=== PATIENT | male | born 1965 | race American Indian/Alaskan Native ===

== ENCOUNTER 2019-11-13 19:23 | Observation (INO) | payer MEDICARE ==
--- NOTE | 2019-11-13 19:54 | Cat Scan Report ---
CT HEAD WITHOUT CONTRAST INDICATION / CLINICAL INFORMATION: neuro deficits <6hrs or sx present upon awakening. TECHNIQUE: All CT scans at this location are performed using CT dose reduction for ALARA by means of automated e xposure control. COMPARISON: Head CT 09/21/2019 and 02/17/2018 and MRI brain 09/22/2019. FINDINGS: HEMORRHAGE: No evidence of intracranial hemorrhage or extra-axial fluid collection. EXTRA-AXIAL SPACES: Dilatation of cortical sulci is noted over the convexity of the right cerebral he misphere. There is increased size of the subarachnoid space in this same distribution. VENTRICULAR SYSTEM: Asymmetry of the lateral ventricles is noted right larger than left. CEREBRAL PARENCHYMA: The right cerebral hemisphere is smaller than that on the left. This finding tog ether with enlargement of the ventricles and subarachnoid space along the convexity of the right cere bral hemisphere suggest the possibility of Dyke Joi Ulisses syndrome. MIDLINE SHIFT OR HERNIATION: There is no mass effect. CEREBELLUM / BRAINSTEM: There is relative atrophy of the right cerebral peduncle. Brain stem has an o therwise unremarkable appearance. Cerebellum has a normal appearance. MIDLINE STRUCTURES:No abnormalities of the pituitary gland or pineal region are identified. INTRACRANIAL VESSELS:No abnormalities are identified on this noncontrast head CT. ORBITS: visualized portions of the orbits have an unremarkable appearance. SOFT TISSUES of HEAD: No significant abnormality. CALVARIUM: Evaluation of bone windows reveals no abnormalities. PARANASAL SINUSES / MASTOID AIR CELLS: Paranasal sinuses are free from inflammatory mucosal disease. Mastoid air cells are normally pneumatized. ADDITIONAL FINDINGS: None. IMPRESSION: 1. 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 Findings are stable in comparison to previous studies dating back through 02/17/2018. 2. No acute intracranial abnormality. CODE STROKE: Time of Communication (CORPORATE ACCOUNTANT/CDT): 1845 central standard time. Licensed Practitioner Receiving Report: Dr Jackson of the [facility] emergency de partment. This communication required a hold time of about 3 minutes Signer Name: Festus Lucas MD Signed: 11/13/2019 7:49 PM Workstation Name: [id number]
[2019-11-13 20:06] LABS: Basophils % (Auto) 0.6 % (0.0-1.8); Eosinophils # (Auto) 0.1 K/mm3 (0.0-0.4); Eosinophils % (Auto) 1.6 % (0.0-4.3); Hematocrit 35.7 % (35.5-45.6); Hemoglobin 12.4 gm/dl (11.8-15.2); Lymphocytes # (Auto) 1.7 K/mm3 (1.2-5.4); Lymphocytes % (Auto) 41.9 % (13.4-35.0); Mean Corpuscular HGB Conc 35 % (32-34); Mean Corpuscular Volume 92 fl (84-94); Monocytes # (Auto) 0.5 K/mm3 (0.0-0.8); Monocytes % (Auto) 13.6 % (0.0-7.3); Platelet Count 179 K/mm3 (140-440); Red Blood Count 3.89 M/mm3 (3.65-5.03); Red Cell Distribution Width 13.6 % (13.2-15.2)
--- NOTE | 2019-11-13 20:16 | Cat Scan Report ---
CTA neck without and with intravenous contrast material CLINICAL HISTORY: stroke symptoms less than 24hr TECHNIQUE: Following acquisition of a timing bolus 0.625 mm thick contiguous axial scans were obtained from aort ic arch to the skull base during rapid bolus intravenous contrast infusion. In addition to evaluation of axial source images multiplanar reconstructions were produced and reviewed for this report. 3 juana ne MIP reconstructions were produced and reviewed. Contrast dose report: Omnipaque 350: 100 ml, administered intravenously All CT examinations performed at this facility utilize modulated dose reduction, iterative reconstruc tion or weight-based dosing, as appropriate, to obtain a radiation dose which is as low as can reason ably be achieved. FINDINGS: Thoracic aorta:No abnormalities are identified along the course of the thoracic aorta..The origins of the great vessels have an unremarkable appearance. Brachiocephalic artery, left common carotid arter y origin and left subclavian artery all have an unremarkable appearance. Right carotid artery:No abnormalities are seen along the course of the RCCA, at the right carotid bif urcation or along the cervical portions of the DASHA. Left carotid artery: Soft plaque is observed at the left carotid bifurcation. There is no associated stenosis. Left common carotid artery and cervical portions of the left internal carotid artery have a normal appearance. Posterior circulation:The vertebral arteries have an unremarkable appearance. Balanced vertebral juancarlos rosalio are demonstrated. Both vertebral arteries contribute to the basilar artery origin. The basilar a rtery has an unremarkable appearance. The degree of stenosis, if any, is determined utilizing NASCET like criteria. In this case there is no indication of hemodynamically significant stenosis at the carotid bifurcations or elsewhere. Evaluation of the nonvascular soft tissue structures reveal no abnormality. There is no indication of cervical lymphadenopathy. No abnormalities are seen along the course of the airway. Visualized porti ons of the parotid glands and the submandibular salivary glands have a normal appearance. Thyroid gla nd has a normal appearance. Evaluation of the lung apices reveals no evidence of lung nodule or infil trate. Evaluation of the cervical spine revealed no significant abnormalities. IMPRESSION: 1. No indication of hemodynamically significant stenosis at the carotid bifurcations or elsewhere. Signer Name: Festus Lucas MD Signed: 11/13/2019 8:12 PM Workstation Name: [id number]
[2019-11-13 20:18] LABS: INR 1.04 (0.87-1.13)
[2019-11-13 20:19] LABS: BUN/Creatinine Ratio 19; Blood Urea Nitrogen 15 mg/dL (9-20); Calcium 8.1 mg/dL (8.4-10.2); Hemolysis Index 22
[2019-11-13 20:20] LABS: Partial Thromboplastin Time 30.4 Sec. (24.2-36.6)
--- NOTE | 2019-11-13 20:22 | Cat Scan Report ---
CTA head with intravenous contrast CLINICAL HISTORY: stroke symptoms less than 24hr TECHNIQUE: 0.625 mm thick contiguous axial scans were obtained from the skull base to the skull vertex during r apid bolus administration of intravenous contrast material. Multiplanar reconstructions were produced in the coronal and sagittal planes. In addition 3 plane MIP instructions were produced and reviewed for this report. The axial source images and reconstructed images were reviewed for this report. CONTRAST DOSE REPORT: Omnipaque 350: 100 ml administered intravenously. All CT scans at this location are performed using CT dose reduction for ALARA by means of automated e xposure control. FINDINGS: Internal carotid arteries:Luzmaria, cavernous, opthalmic, clinoid and supraclinoid segments of the ICAs have an unremarkable appearance. Middle cerebral arteries: There is mild asymmetry of the M1 segments of the left middle cerebral juancarlos rosalio, left larger than right. In addition there is a slightly diminutive caliber to the insular and o percular branches of the right middle cerebral artery compared to those on the left. There is no greg cation of large vessel occlusion or intracranial stenosis. Slight decrease in caliber of the middle c erebral artery and its branches on the right is likely related to hemiatrophy of the right cerebral h emisphere. Anterior cerebral arteries: Normal and symmetrical A1 segments anterior cerebral arteries are demonst rated. A small anterior communicating artery is observed. No abnormalities are seen along the course of the A2 segments or their pericallosal branches. Vertebral arteries: Balanced vertebral arteries both contribute to the basilar artery origin. Basilar artery: Basilar artery has a normal appearance. Posterior cerebral arteries:No abnormalities. Dural sinuses: Dural venous sinuses are well demonstrated on this exam. There is no evidence of dural sinus thrombosis. IMPRESSION: 1. No evidence of intracranial stenosis, large vessel occlusion or aneurysm. Signer Name: Festus Lucas MD Signed: 11/13/2019 8:18 PM Workstation Name: [id number]
--- NOTE | 2019-11-13 20:42 | Emergency Department Report ---
HPI - General Chief Complaint: Neuro Symptoms/Deficit PUI?: No Time Seen by Provider: 11/13/19 19:29 - HPI HPI: [facility] Date of Service: 11/13/2019 19:23:59 Comments/Sign-Out: left visual field deficit, left sided weakness, and blurred vision since 5:00 am on wakeup, no alteplase. Differential includes conversion vs. 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 ASPECTS 10. CT head negative. Metrics: Last Known Well: 11/14/2019 05:00:00 [facility] Notification Time: 11/13/2019 19:23:36 Arrival Time: 11/13/2019 19:34:15 Stamp Time: 11/13/2019 19:23:59 Time First Login Attempt: 11/13/2019 19:29:49 Video Start Time: 11/13/2019 19:29:49 Symptoms: weakness x 2 hours and slurred speech, left arm and leg numbness and weakness NIHSS Start Assessment Time: 11/13/2019 19:31:30 Patient is not a candidate for Alteplase/Activase. Patient was not deemed candidate for Alteplase/Activase thrombolytics because of Last Well Known Above 4.5 Hours. Video End Time: 11/13/2019 19:59:00 CT head showed no acute hemorrhage or acute core infarct. Clinical Presentation is Suggestive of Large Vessel Occlusive Disease, Recommendations are as Follows Reviewed, No Indication of Large Vessel Occlusive Thrombus, Patient is not an DAMIAN Candidate. ED Physician notified of diagnostic impression and management plan on 11/13/2019 19:35:35 History of Present Illness: Patient is a 53 year old Male. Patient was brought by EMS for symptoms of weakness x 2 hours and slurred speech, left arm and leg numbness and weakness The patient has had weakness, x 2 hours and slurred speech. Left arm and leg weakness, and slurred speech,. He has diabetes, stent. He has a mild headache. the patient has blurry vision in both eyes he states since 5 am, based on this he was not normal. Patient states his left arm hurts all the way down. He states he has had blurry vision since the morning, and the last time he has felt absolutely normal was this morning. On examination we note a visual field deficit on the left side also. Note: This story is different than EMS history, I confirmed with the patient x 3 about time of visual symptom onset. Past Medical History: Hypertension Diabetes Mellitus Coronary Artery Disease Anticoagulant use: No Antiplatelet use: asprin Examination: 1A: Level of Consciousness - Alert; keenly responsive + 0 1B: Ask Month and Age - Both Questions Right + 0 1C: Blink Eyes & Squeeze Hands - Performs Both Tasks + 0 2: Test Horizontal Extraocular Movements - Normal + 0 3: Test Visual Lewis - Complete Hemianopia + 2 4: Test Facial Palsy (Use Grimace if Obtunded) - Normal symmetry + 0 5A: Test Left Arm Motor Drift - No Movement + 4 5B: Test Right Arm Motor Drift - No Drift for 10 Seconds + 0 6A: Test Left Leg Motor Drift - No Movement + 4 6B: Test Right Leg Motor Drift - No Drift for 5 Seconds + 0 7: Test Limb Ataxia (FNF/Heel-Moran) - No Ataxia + 0 8: Test Sensation - Normal; No sensory loss + 0 9: Test Language/Aphasia - Normal; No aphasia + 0 10: Test Dysarthria - Normal + 0 11: Test Extinction/Inattention - No abnormality + 0 NIHSS Score: 10 Patient/Family was informed the Neurology Consult would happen via TeleHealth consult by way of interactive audio and video telecommunications and consented to receiving care in this manner. Due to the immediate potential for life-threatening deterioration due to underlying acute neurologic illness, I spent 35 minutes providing critical care. This time includes time for face to face visit via telemedicine, review of medical records, imaging studies and discussion of findings with providers, the patient and/or family. Dr Stanley Liang [facility] Case [id number] ED Past Medical Hx - Past Medical History Previous Medical History?: Yes Hx Hypertension: Yes Additional medical history: cerebral palsy, quadrople bypass - Surgical History Past Surgical History?: Yes Additional Surgical History: bypass - Social History Smoking Status: Current Every Day Smoker Substance Use Type: Alcohol - Medications Home Medications: Home Medications Medication Instructions Recorded Confirmed Last Taken Type Abacavir/Dolutegravir/Lamivudi 1 each PO QDAY 11/13/19 11/13/19 Unknown History [Triumeq 600-50-300 mg Tablet] Aspirin [Adult Aspirin] 81 mg PO QDAY 11/13/19 11/13/19 Unknown History Metoprolol [Lopressor TAB] 50 mg PO QDAY 11/13/19 11/13/19 Unknown History diphenhydrAMINE [Benadryl CAP] 50 mg PO QHS 11/13/19 11/13/19 Unknown History ED Review of Systems ROS: Stated complaint: STROKE Other details as noted in HPI Constitutional: see HPI Eyes: as per HPI ENT: as per HPI Respiratory: see HPI Physical Exam - Physical Exam Vital Signs: Vital Signs 11/13/19 20:09 Temperature 98.5 F Pulse Rate 72 Respiratory 14 Rate Blood Pressure 135/80 Blood Pressure 135/80 [Left] O2 Sat by Pulse 100 Oximetry ED Course Vital Signs 11/13/19 20:09 Temperature 98.5 F Pulse Rate 72 Respiratory 14 Rate Blood Pressure 135/80 Blood Pressure 135/80 [Left] O2 Sat by Pulse 100 Oximetry ED Medical Decision Making - Lab Data Result diagrams: 11/13/19 19:56 11/13/19 19:56 Critical care attestation.: If time is entered above; I have spent that time in minutes in the direct care of this critically ill patient, excluding procedure time. ED Disposition Clinical Impression: CVA (cerebral vascular accident), CAD (coronary artery disease) Disposition: OP ADMIT IP TO THIS HOSP Is pt being admited?: Yes Condition: Stable Time of Disposition: 23:31
[2019-11-13] MEDS ORDERED: ASPIRIN 325 MG TAB PO ONE (20:45)
--- NOTE | 2019-11-13 21:26 | Emergency Department Report ---
ED General Adult HPI - General Chief complaint: Neuro Symptoms/Deficit Stated complaint: STROKE PUI?: Yes Time Seen by Provider: 11/13/19 19:29 Source: patient, EMS Mode of arrival: Stretcher Limitations: No Limitations - History of Present Illness Initial comments: Patient is a 53-year-old F [place] male who has a past medical history of hypertension diabetes and CABG 8 months ago who is presenting with left-sided weakness. On arrival paramedics stated that the symptoms been present for 2 hours however the patient states that he started having symptoms earlier this morning. Patient is having slurred speech and left-sided weakness. Patient is unable to walk secondary to weakness. Patient denies any cough cold congestion fevers or chills. - Related Data Allergies Allergy/AdvReac Type Severity Reaction Status Date / Time metoclopramide [From Reglan] Allergy Unknown Verified 11/13/19 19:25 promethazine [From Phenergan] Allergy Unknown Verified 11/13/19 19:25 ED Review of Systems ROS: Stated complaint: STROKE Other details as noted in HPI Comment: All other systems reviewed and negative Constitutional: see HPI Eyes: as per HPI ENT: as per HPI Respiratory: see HPI ED Past Medical Hx - Past Medical History Previous Medical History?: Yes Hx Hypertension: Yes Additional medical history: cerebral palsy, quadrople bypass - Surgical History Past Surgical History?: Yes Additional Surgical History: bypass - Social History Smoking Status: Current Every Day Smoker Substance Use Type: Alcohol ED Physical Exam - General Limitations: No Limitations, Physical Limitation General appearance: alert, in no apparent distress - Head Head exam: Present: atraumatic, normocephalic - Eye Eye exam: Present: normal appearance, PERRL, EOMI - ENT ENT exam: Present: mucous membranes moist - Neck Neck exam: Present: normal inspection - Respiratory Respiratory exam: Present: normal lung sounds bilaterally. Absent: respiratory distress, wheezes, rales, rhonchi - Cardiovascular Cardiovascular Exam: Present: regular rate, normal rhythm, normal heart sounds. Absent: systolic murmur, diastolic murmur, rubs, gallop - GI/Abdominal GI/Abdominal exam: Present: soft, normal bowel sounds. Absent: distended, tenderness, guarding, rebound - Rectal Rectal exam: Present: deferred - Extremities Exam Extremities exam: Present: normal inspection - Back Exam Back exam: Present: normal inspection - Neurological Exam Neurological exam: Present: alert, oriented X3, CN II-XII intact, motor sensory deficit - Psychiatric Psychiatric exam: Present: normal affect, normal mood - Skin Skin exam: Present: warm, dry, intact, normal color. Absent: rash - Other Other exam information: Examination: 1A: Level of Consciousness - Alert; keenly responsive + 0 1B: Ask Month and Age - Both Questions Right + 0 1C: Blink Eyes & Squeeze Hands - Performs Both Tasks + 0 2: Test Horizontal Extraocular Movements - Normal + 0 3: Test Visual Lewis - Complete Hemianopia + 2 4: Test Facial Palsy (Use Grimace if Obtunded) - Normal symmetry + 0 5A: Test Left Arm Motor Drift - No Movement + 4 5B: Test Right Arm Motor Drift - No Drift for 10 Seconds + 0 6A: Test Left Leg Motor Drift - No Movement + 4 6B: Test Right Leg Motor Drift - No Drift for 5 Seconds + 0 7: Test Limb Ataxia (FNF/Heel-Moran) - No Ataxia + 0 8: Test Sensation - Normal; No sensory loss + 0 9: Test Language/Aphasia - Normal; No aphasia + 0 10: Test Dysarthria - Normal + 0 11: Test Extinction/Inattention - No abnormality + 0 NIHSS Score: 10 ED Course Vital Signs 11/13/19 11/13/19 20:05 20:09 Temperature 98.5 F Pulse Rate 72 Respiratory 14 14 Rate Blood Pressure 135/80 Blood Pressure 135/80 [Left] O2 Sat by Pulse 100 100 Oximetry ED Medical Decision Making - Lab Data Result diagrams: 11/13/19 19:56 11/13/19 19:56 Lab Results 11/13/19 11/13/19 11/13/19 Range/Units 19:56 19:56 19:56 WBC 3.9 L (4.5-11.0) K/mm3 RBC 3.89 (3.65-5.03) M/mm3 Hgb 12.4 (11.8-15.2) gm/dl Hct 35.7 (35.5-45.6) % MCV 92 (84-94) fl MCH 32 (28-32) pg MCHC 35 H (32-34) % RDW 13.6 (13.2-15.2) % Plt Count 179 (140-440) K/mm3 Lymph % (Auto) 41.9 H (13.4-35.0) % [place] % (Auto) 13.6 H (0.0-7.3) % Eos % (Auto) 1.6 (0.0-4.3) % Baso % (Auto) 0.6 (0.0-1.8) % Lymph # 1.7 (1.2-5.4) K/mm3 [place] # 0.5 (0.0-0.8) K/mm3 Eos # 0.1 (0.0-0.4) K/mm3 Baso # 0.0 (0.0-0.1) K/mm3 Seg Neutrophils % 42.3 (40.0-70.0) % Seg Neutrophils # 1.7 L (1.8-7.7) K/mm3 PT 13.8 (12.2-14.9) Sec. INR 1.04 (0.87-1.13) APTT 30.4 (24.2-36.6) Sec. Thrombin Time (15.1-19.6) Sec. Sodium 136 L (137-145) mmol/L Potassium 3.6 (3.6-5.0) mmol/L Chloride 105.8 (98-107) mmol/L Carbon Dioxide 20 L (22-30) mmol/L Anion Gap 14 mmol/L BUN 15 (9-20) mg/dL Creatinine 0.8 (0.8-1.3) mg/dL Estimated GFR > 60 ml/min BUN/Creatinine Ratio 19 % Glucose 93 (75-100) mg/dL Calcium 8.1 L (8.4-10.2) mg/dL Troponin T < 0.010 (0.00-0.029) ng/mL 11/13/19 Range/Units 19:56 WBC (4.5-11.0) K/mm3 RBC (3.65-5.03) M/mm3 Hgb (11.8-15.2) gm/dl Hct (35.5-45.6) % MCV (84-94) fl MCH (28-32) pg MCHC (32-34) % RDW (13.2-15.2) % Plt Count (140-440) K/mm3 Lymph % (Auto) (13.4-35.0) % [place] % (Auto) (0.0-7.3) % Eos % (Auto) (0.0-4.3) % Baso % (Auto) (0.0-1.8) % Lymph # (1.2-5.4) K/mm3 [place] # (0.0-0.8) K/mm3 Eos # (0.0-0.4) K/mm3 Baso # (0.0-0.1) K/mm3 Seg Neutrophils % (40.0-70.0) % Seg Neutrophils # (1.8-7.7) K/mm3 PT (12.2-14.9) Sec. INR (0.87-1.13) APTT (24.2-36.6) Sec. Thrombin Time 18.1 (15.1-19.6) Sec. Sodium (137-145) mmol/L Potassium (3.6-5.0) mmol/L Chloride (98-107) mmol/L Carbon Dioxide (22-30) mmol/L Anion Gap mmol/L BUN (9-20) mg/dL Creatinine (0.8-1.3) mg/dL Estimated GFR ml/min BUN/Creatinine Ratio % Glucose (75-100) mg/dL Calcium (8.4-10.2) mg/dL Troponin T (0.00-0.029) ng/mL - EKG Data -: EKG Interpreted by Ca EKG shows normal: sinus rhythm, axis, intervals, QRS complexes, ST-T waves Rate: normal - EKG Data Interpretation: normal EKG - Radiology Data Ordering Physician: ANGELY CARBALLO MD Date of Service: 11/13/19 Procedure(s): CT head/brain wo [facility] Accession Number(s): [id number] cc: ANGELY CARBALLO MD CT HEAD WITHOUT CONTRAST INDICATION / CLINICAL INFORMATION: neuro deficits <6hrs or sx present upon awakening. TECHNIQUE: All CT scans at this location are performed using CT dose reduction for ALARA by means of automated exposure control. COMPARISON: Head CT 09/21/2019 and 02/17/2018 and MRI brain 09/22/2019. FINDINGS: HEMORRHAGE: No evidence of intracranial hemorrhage or extra-axial fluid collection. EXTRA-AXIAL SPACES: Dilatation of cortical sulci is noted over the convexity of the right cerebral hemisphere. There is increased size of the subarachnoid space in this same distribution. VENTRICULAR SYSTEM: Asymmetry of the lateral ventricles is noted right larger than left. CEREBRAL PARENCHYMA: The right cerebral hemisphere is smaller than that on the left. This finding together with enlargement of the ventricles and subarachnoid space along the convexity of the right cerebral hemisphere suggest the possibility of Dyke Joi Ulisses syndrome. MIDLINE SHIFT OR HERNIATION: There is no mass effect. CEREBELLUM / BRAINSTEM: There is relative atrophy of the right cerebral peduncle. Brain stem has an otherwise unremarkable appearance. Cerebellum has a normal appearance. MIDLINE STRUCTURES:No abnormalities of the pituitary gland or pineal region are identified. INTRACRANIAL VESSELS:No abnormalities are identified on this noncontrast head CT. ORBITS: visualized portions of the orbits have an unremarkable appearance. SOFT TISSUES of HEAD: No significant abnormality. CALVARIUM: Evaluation of bone windows reveals no abnormalities. PARANASAL SINUSES / MASTOID AIR CELLS: Paranasal sinuses are free from inflammatory mucosal disease. Mastoid air cells are normally pneumatized. ADDITIONAL FINDINGS: None. IMPRESSION: 1. 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 Findings are stable in comparison to previous studies dating back through 02/17/2018. 2. No acute intracranial abnormality. CODE STROKE: Time of Communication (PRODUCT MARKETING MANAGER/CDT): 1845 central standard time. Licensed Practitioner Receiving Report: Dr Jackson of the [facility] emergency department. This communication required a hold time of about 3 minutes Signer Name: Festus Lucas MD Signed: 11/13/2019 7:49 PM Workstation Name: [id number] CTA neck without and with intravenous contrast material CLINICAL HISTORY: stroke symptoms less than 24hr TECHNIQUE: Following acquisition of a timing bolus 0.625 mm thick contiguous axial scans were obtained from aortic arch to the skull base during rapid bolus intravenous contrast infusion. In addition to evaluation of axial source images multiplanar reconstructions were produced and reviewed for this report. 3 plane MIP reconstructions were produced and reviewed. Contrast dose report: Omnipaque 350: 100 ml, administered intravenously All CT examinations performed at this facility utilize modulated dose reduction, iterative reconstruction or weight-based dosing, as appropriate, to obtain a radiation dose which is as low as can reasonably be achieved. FINDINGS: Thoracic aorta:No abnormalities are identified along the course of the thoracic aorta..The origins of the great vessels have an unremarkable appearance. Brachiocephalic artery, left common carotid artery origin and left subclavian artery all have an unremarkable appearance. Right carotid artery:No abnormalities are seen along the course of the RCCA, at the right carotid bifurcation or along the cervical portions of the DASHA. Left carotid artery: Soft plaque is observed at the left carotid bifurcation. There is no associated stenosis. Left common carotid artery and cervical portions of the left internal carotid artery have a normal appearance. Posterior circulation:The vertebral arteries have an unremarkable appearance. Balanced vertebral arteries are demonstrated. Both vertebral arteries contribute to the basilar artery origin. The basilar artery has an unremarkable appearance. The degree of stenosis, if any, is determined utilizing NASCET like criteria. In this case there is no indication of hemodynamically significant stenosis at the carotid bifurcations or elsewhere. Evaluation of the nonvascular soft tissue structures reveal no abnormality. There is no indication of cervical lymphadenopathy. No abnormalities are seen along the course of the airway. Visualized portions of the parotid glands and the submandibular salivary glands have a normal appearance. Thyroid gland has a normal appearance. Evaluation of the lung apices reveals no evidence of lung nodule or infiltrate. Evaluation of the cervical spine revealed no significant abnormalities. IMPRESSION: 1. No indication of hemodynamically significant stenosis at the carotid bifurcations or elsewhere. Signer Name: Festus Lucas MD Signed: 11/13/2019 8:12 PM Workstation Name: [id number] CTA head with intravenous contrast CLINICAL HISTORY: stroke symptoms less than 24hr TECHNIQUE: 0.625 mm thick contiguous axial scans were obtained from the skull base to the skull vertex during rapid bolus administration of intravenous contrast material. Multiplanar reconstructions were produced in the coronal and sagittal planes. In addition 3 plane MIP instructions were produced and reviewed for this report. The axial source images and reconstructed images were reviewed for this report. CONTRAST DOSE REPORT: Omnipaque 350: 100 ml administered intravenously. All CT scans at this location are performed using CT dose reduction for ALARA by means of automated exposure control. FINDINGS: Internal carotid arteries:Luz[place]ia, cavernous, opthalmic, clinoid and supraclinoid segments of the ICAs have an unremarkable appearance. Middle cerebral arteries: There is mild asymmetry of the M1 segments of the left middle cerebral arteries, left larger than right. In addition there is a slightly diminutive caliber to the insular and opercular branches of the right middle cerebral artery compared to those on the left. There is no indication of large vessel occlusion or intracranial stenosis. Slight decrease in caliber of the middle cerebral artery and its branches on the right is likely related to hemiatrophy of the right cerebral hemisphere. Anterior cerebral arteries: Normal and symmetrical A1 segments anterior cerebral arteries are demonstrated. A small anterior communicating artery is observed. No abnormalities are seen along the course of the A2 segments or their pericallosal branches. Vertebral arteries: Balanced vertebral arteries both contribute to the basilar artery origin. Basilar artery: Basilar artery has a normal appearance. Posterior cerebral arteries:No abnormalities. Dural sinuses: Dural venous sinuses are well demonstrated on this exam. There is no evidence of dural sinus thrombosis. IMPRESSION: 1. No evidence of intracranial stenosis, large vessel occlusion or aneurysm. Signer Name: Festus Lucas MD Signed: 11/13/2019 8:18 PM Workstation Name: [id number] - Medical Decision Making No large vessel occlusion was found on CT however the patient is showing significant strokelike symptoms. Patient given aspirin. Patient outside window for TPA. Patient will be admitted to the hospitalist service for further management. Critical care attestation.: If time is entered above; I have spent that time in minutes in the direct care of this critically ill patient, excluding procedure time. ED Disposition Clinical Impression: CVA (cerebral vascular accident) Disposition: OP ADMIT IP TO THIS HOSP Is pt being admited?: Yes Does the pt Need Aspirin: No Condition: Stable Referrals: PRIMARY CARE, [Primary Care Provider] - 3-5 Days Time of Disposition: 21:26
[2019-11-13] MEDS ORDERED: DEXTROSE 50% IN WATER (25GM) 50 ML SYRINGE IV PRN (21:45)
[2019-11-13] MEDS ORDERED: ACETAMINOPHEN 325 MG TAB PO PRN ×2 (21:45)
[2019-11-13] MEDS ORDERED: METOCLOPRAMIDE 10 MG TAB PO PRN (21:45)
[2019-11-13] MEDS ORDERED: PROMETHAZINE 25 MG RECT SUPP PR PRN (21:45)
[2019-11-13] MEDS ORDERED: MAGNESIUM HYDROXIDE (MOM) ORAL LIQD UDC PO PRN (21:45)
[2019-11-13] MEDS ORDERED: ONDANSETRON 4 MG/2 ML INJ IV PRN (21:45)
[2019-11-13] MEDS ORDERED: INSULIN LISPRO 100 UNIT/ML VIAL 3 mL SUB-Q SCH (22:00)
--- NOTE | 2019-11-13 22:07 | History and Physical Report ---
<DIPTIANALY O - Last Filed: 11/14/19 01:56> History of Present Illness Date of examination: 11/13/19 Date of admission: 11/13/19 21:26 Chief complaint: Left Sided Weakness Slurred Speech History of present illness: Patient is a 53-year-old male with known history of hypertension, HIV positive with CD4 count of 19 about 3 weeks ago, coronary artery disease with quadruple bypass about 8 months ago presenting to the emergency room today complaining of left-sided weakness and slurred speech. Symptoms were said to have started earlier this morning. He denies any chest pain or shortness of breath, no fever or chills, no headache or dizziness, no nausea vomiting, denies any difficulty swallowing, denies any fall. He has been unable to ambulate because of the left-sided weakness. Work-up in the emergency room did not reveal any acute abnormality on the CT scan of the head, lab tests were also unremarkable. Patient was evaluated by the tele neurologist. Recommendation is to have a full work-up for possible CVA. Past History Past Medical History: CAD, hypertension, other (Cerebral palsy, HIV+ve with CD4 count of 19 (3weeks ago)-follows up at the infectious Disease clinic in [place].) Past Surgical History: CABG Social history: smoking (Current daily smoker), alcohol abuse Family history: no significant family history Medications and Allergies Allergies Allergy/AdvReac Type Severity Reaction Status Date / Time metoclopramide [From Reglan] Allergy Unknown Verified 11/13/19 19:25 promethazine [From Phenergan] Allergy Unknown Verified 11/13/19 19:25 Home Medications Medication Instructions Recorded Confirmed Last Taken Type Abacavir/Dolutegravir/Lamivudi 1 each PO QDAY 11/13/19 11/14/19 Unknown History [Triumeq 600-50-300 mg Tablet] Aspirin [Adult Aspirin] 81 mg PO QDAY 11/13/19 11/14/19 Unknown History Metoprolol [Lopressor TAB] 50 mg PO QDAY 11/13/19 11/14/19 Unknown History diphenhydrAMINE [Benadryl CAP] 50 mg PO QHS 11/13/19 11/14/19 Unknown History Active Meds: Active Medications Acetaminophen (Tylenol) 650 mg PO Q4H PRN PRN Reason: Pain, Mild (1-3) Sodium Chloride (Sodium Chloride Flush Syringe 10 Ml) 10 ml INJ PRN PRN PRN Reason: LINE FLUSH Review of Systems Constitutional: no fever, no chills Ears, nose, mouth and throat: no nasal congestion, no sore throat Cardiovascular: no chest pain, no palpitations Respiratory: no cough, no shortness of breath Gastrointestinal: no abdominal pain, no nausea, no vomiting, no diarrhea Genitourinary Male: no dysuria, no hematuria, no nocturia Musculoskeletal: no neck pain, no low back pain Integumentary: no rash, no pruritis Neurological: no headaches, no confusion Psychiatric: no anxiety, no depression Exam - Constitutional Vitals: Temp Pulse Resp BP Pulse Ox 98.5 F 76 18 122/64 98 11/13/19 20:09 11/13/19 21:16 11/13/19 21:16 11/13/19 21:16 11/13/19 21:16 General appearance: Present: no acute distress, well-nourished - EENT Eyes: Present: PERRL, EOM intact. Absent: scleral icterus ENT: hearing intact, clear oral mucosa, dentition normal - Neck Neck: Present: supple, normal ROM - Respiratory Respiratory effort: normal Respiratory: bilateral: CTA - Cardiovascular Rhythm: regular Heart Sounds: Present: S1 & S2. Absent: gallop, systolic murmur, diastolic murmur, rub - Extremities Extremities: no ischemia, pulses intact, pulses symmetrical, No edema Peripheral Pulses: within normal limits - Abdominal General gastrointestinal: Present: soft, non-tender, non-distended, normal bowel sounds. Absent: mass - Integumentary Integumentary: Present: clear, warm, dry. Absent: rash - Musculoskeletal Musculoskeletal: left sided weakness - Psychiatric Psychiatric: appropriate mood/affect, intact judgment & insight, memory intact, cooperative - Neurologic Neurologic: CNII-XII intact, focal deficits (Left Sided Weakness, Facial droop.) HEART Score - HEART Score Troponin: Troponin T < 0.010 ng/mL (0.00-0.029) 11/13/19 19:56 Results - Labs CBC & Chem 7: 11/13/19 19:56 11/13/19 19:56 Labs: Abnormal lab results 11/13/19 11/13/19 Range/Units 19:56 19:56 WBC 3.9 L (4.5-11.0) K/mm3 MCHC 35 H (32-34) % Lymph % (Auto) 41.9 H (13.4-35.0) % [place] % (Auto) 13.6 H (0.0-7.3) % Seg Neutrophils # 1.7 L (1.8-7.7) K/mm3 Sodium 136 L (137-145) mmol/L Carbon Dioxide 20 L (22-30) mmol/L Calcium 8.1 L (8.4-10.2) mg/dL Assessment and Plan - Patient Problems (1) CVA (cerebral vascular accident) Current Visit: Yes Status: Acute Plan to address problem: Patient admitted and placed on daily aspirin. We will schedule patient for carotid Doppler, echocardiogram and MRI of the brain. We will place a consult to neurology for evaluation and recommendation. (2) Hypertension Current Visit: Yes Status: Acute Plan to address problem: Blood pressure appears stable. We will resume routine home medications once reconciled We will monitor vital signs closely. (3) CAD (coronary artery disease) Current Visit: Yes Status: Acute (4) HIV positive Current Visit: Yes Status: Acute Plan to address problem: Patient CD4 count was 19 about 3 weeks ago. Patient follows up with infectious disease clinic in [place]. (5) DVT prophylaxis Current Visit: Yes Status: Acute Plan to address problem: Patient is placed on subcutaneous Lovenox. (6) Full code status Current Visit: Yes Status: Acute <ALTA NEGRON - Last Filed: 11/14/19 12:38> History of Present Illness Date of admission: 11/13/19 21:26 Medications and Allergies Active Meds: Active Medications Acetaminophen (Tylenol) 650 mg PO Q4H PRN PRN Reason: Pain, Mild (1-3) Aspirin (Aspirin) 325 mg PO QDAY [facility] Last Admin: 11/14/19 10:41 Dose: 325 mg Documented by: Atorvastatin Calcium (Lipitor) 40 mg PO QHS [facility] Last Admin: 11/13/19 22:44 Dose: 40 mg Documented by: Bisacodyl (Dulcolax) 10 mg RI QDAY PRN PRN Reason: Constipation Dextrose (D50w (25gm) Syringe) 0 ml IV Q30MIN PRN; Protocol PRN Reason: Hypoglycemia Enoxaparin Sodium (Enoxaparin) 40 mg SUB-Q QDAY@2200 [facility] Magnesium Hydroxide (Milk Of Magnesia) 30 ml PO Q4H PRN PRN Reason: Constipation Ondansetron HCl (Zofran) 4 mg IV Q8H PRN PRN Reason: Nausea And Vomiting Sodium Chloride (Sodium Chloride Flush Syringe 10 Ml) 10 ml IV PRN PRN PRN Reason: LINE FLUSH Sodium Chloride (Sodium Chloride Flush Syringe 10 Ml) 10 ml IV BID [facility] Last Admin: 11/14/19 10:41 Dose: 10 ml Documented by: Exam - Constitutional Vitals: Temp Pulse Resp BP Pulse Ox 97.8 F 83 18 120/82 97 11/14/19 07:50 11/14/19 07:50 11/14/19 07:50 11/14/19 07:50 11/14/19 07:50 HEART Score - HEART Score Troponin: Troponin T < 0.010 ng/mL (0.00-0.029) 11/13/19 19:56 Results - Labs CBC & Chem 7: 11/14/19 07:19 11/14/19 07:19 Labs: Abnormal lab results 11/13/19 11/13/19 11/14/19 Range/Units 19:56 19:56 07:19 WBC 3.9 L 3.6 L (4.5-11.0) K/mm3 MCHC 35 H 35 H (32-34) % Lymph % (Auto) 41.9 H 41.0 H (13.4-35.0) % [place] % (Auto) 13.6 H 11.6 H (0.0-7.3) % Seg Neutrophils # 1.7 L 1.6 L (1.8-7.7) K/mm3 Sodium 136 L (137-145) mmol/L Potassium (3.6-5.0) mmol/L Carbon Dioxide 20 L (22-30) mmol/L Glucose (75-100) mg/dL Calcium 8.1 L (8.4-10.2) mg/dL HDL Cholesterol (40-59) mg/dL 11/14/19 Range/Units 07:19 WBC (4.5-11.0) K/mm3 MCHC (32-34) % Lymph % (Auto) (13.4-35.0) % [place] % (Auto) (0.0-7.3) % Seg Neutrophils # (1.8-7.7) K/mm3 Sodium (137-145) mmol/L Potassium 3.4 L (3.6-5.0) mmol/L Carbon Dioxide (22-30) mmol/L Glucose 114 H (75-100) mg/dL Calcium (8.4-10.2) mg/dL HDL Cholesterol 32 L (40-59) mg/dL Assessment and Plan - Patient Problems (1) Hypokalemia Current Visit: Yes Status: Acute
[2019-11-14 07:44] LABS: Basophils % (Auto) 0.8 % (0.0-1.8); Eosinophils # (Auto) 0.1 K/mm3 (0.0-0.4); Eosinophils % (Auto) 2.1 % (0.0-4.3); Hematocrit 37.4 % (35.5-45.6); Hemoglobin 13.1 gm/dl (11.8-15.2); Lymphocytes # (Auto) 1.5 K/mm3 (1.2-5.4); Mean Corpuscular HGB Conc 35 % (32-34); Mean Corpuscular Volume 92 fl (84-94); Monocytes # (Auto) 0.4 K/mm3 (0.0-0.8); Monocytes % (Auto) 11.6 % (0.0-7.3); Platelet Count 181 K/mm3 (140-440); Red Blood Count 4.08 M/mm3 (3.65-5.03); Red Cell Distribution Width 13.4 % (13.2-15.2)
[2019-11-14 07:55] LABS: INR 0.99 (0.87-1.13)
[2019-11-14 08:03] LABS: BUN/Creatinine Ratio 18; Blood Urea Nitrogen 14 mg/dL (9-20); Calcium 8.4 mg/dL (8.4-10.2); HDL Cholesterol 32 mg/dL (40-59); Hemolysis Index 3; LDL Cholesterol,Direct 73 mg/dL (50-130)
[2019-11-14] MEDS ORDERED: ASPIRIN 325 MG TAB PO SCH (10:00)
--- NOTE | 2019-11-14 10:18 | Magnetic Resonance Report ---
MRI BRAIN WITHOUT CONTRAST INDICATION / CLINICAL INFORMATION: Cerebrovascular accident. Left-sided weakness. TECHNIQUE: Multiplanar, multisequence MR images of the brain were obtained. COMPARISON: Head CT 11/13/2019 and MRI brain 07/02/2019, 10/17/2018 and 02/28/2018. FINDINGS: BRAIN / INTRACRANIAL CONTENTS: Diffusion weighted scans are negative. There is no indication of acute or subacute ischemic injury. Hemiatrophy of the right cerebral hemisphere is noted with dilatation of the right lateral ventricle, enlargement of the right sylvian fissure and interest location of the frontal, temporal and parietal lobes. These findings are stable in comparison to previous study and are on a developmental basis. There is no mass effect. No evidence of intracranial hemorrhage or extra-axial fluid collection is se en. Evaluation of the brainstem is remarkable for atrophy of the right cerebral peduncle and right side o f the gemma likely related to the atrophy of the right cerebral hemisphere. Microvascular ischemic adeel nges are suspected in the left side of the gemma. Brainstem has an otherwise unremarkable appearance. No cerebellar abnormalities are identified. There is abnormal signal intensity in the sphenoid bone on the left just anterior and medial to the l eft anterior clinoid process. This may reflect opacification of a pneumatized superior lateral recess of the left sphenoid sinus. Possibility of encephalocele is considered less likely as there is no co rresponding bone defect in this region on CTA head dated 11/13/2019. This finding is stable comparison to previous studies dating back through 02/28/2018. MIDLINE STRUCTURES:No abnormalities are seen to involve the pituitary gland. Pineal region has an unr emarkable appearance. CRANIOCERVICAL JUNCTION: No abnormalities are identified at the craniocervical junction. VASCULAR FLOW-VOIDS: Normal flow-voids are present within the major intracranial vessels. ORBITS: The orbits have an unremarkable appearance. SINUSES / MASTOIDS: There is no indication of inflammatory disease in the paranasal sinuses or mastoi d air cells. ADDITIONAL FINDINGS: None. IMPRESSION: 1. 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 This would be expect ed, this finding is stable when compared to previous studies dating back through 02/28/2018. 2. No indication of acute or subacute infarction. 3. No interval change in comparison to previous studies. Signer Name: Festus Lucas MD Signed: 11/14/2019 10:14 AM Workstation Name: [id number]
[2019-11-14] MEDS ORDERED: POTASSIUM CHLORIDE ER 20 MEQ TAB PO ONE (12:20)
--- NOTE | 2019-11-14 12:28 | Progress Note ---
Assessment and Plan - Patient Problems (1) CVA (cerebral vascular accident) Current Visit: Yes Status: Acute Plan to address problem: Continue current medical regimen Patient admitted and placed on daily aspirin. carotid Doppler, echocardiogram and MRI of the brain. Neurologist consult (2) Hypertension Current Visit: Yes Status: Acute Plan to address problem: Blood pressure appears stable. Monitor blood pressure Resume home med (3) CAD (coronary artery disease) Current Visit: Yes Status: Acute Resume home statin (4) HIV positive Current Visit: Yes Status: Acute Plan to address problem: Patient CD4 count was 19 about 3 weeks ago. Patient follows up with infectious disease clinic in [place]. Patient is on triumeq at home-not in hospital formulary Will resume pts home antiviral when available (5) DVT prophylaxis Current Visit: Yes Status: Acute Plan to address problem: Patient is placed on subcutaneous Lovenox. (6) Full code status Current Visit: Yes Status: Acute - Patient Problems (1) Hypokalemia Current Visit: Yes Status: Acute Plan to address problem: replete potassium Am lab, bmp and mag level Subjective Date of service: 11/14/19 Principal diagnosis: CVA with left sided weakness Interval history: Patient seen at bedside in the his room. Patient alert and oriented. Noted slurred speech but clear. Left side weakness-pt said condition is new. Reviewed lab, mar, and v/s. MRI today will follow up with result Objective - Constitutional Vitals: Vital Signs - 12hr 11/14/19 11/14/19 11/14/19 03:09 04:54 07:50 Temperature 98.0 F 97.8 F Pulse Rate 63 83 Respiratory 16 18 Rate Blood Pressure 116/74 120/82 O2 Sat by Pulse 98 94 97 Oximetry General appearance: Present: no acute distress, well-nourished - EENT Eyes: PERRL, EOM intact ENT: hearing intact, clear oral mucosa Ears: bilateral: normal - Neck Neck: supple, normal ROM - Respiratory Respiratory effort: normal Respiratory: bilateral: CTA, diminished (report tobacco use about 4 to 6 sticks daily) - Breasts Breasts: normal - Cardiovascular Rhythm: regular Heart Sounds: Present: S1 & S2. Absent: gallop, rub Extremities: pulses intact, No edema, normal color, Full ROM - Gastrointestinal General gastrointestinal: Present: soft, non-tender, non-distended, normal bowel sounds - Genitourinary Male genitourinary: normal - Integumentary Integumentary: clear, warm, dry - Musculoskeletal Musculoskeletal: left sided weakness (Patient came with CVA) - Neurologic Neurologic: moves all extremities - Psychiatric Psychiatric: memory intact, appropriate mood/affect, intact judgment & insight - Allied health notes Allied health notes reviewed: nursing - Labs CBC & Chem 7: 11/14/19 07:19 11/14/19 07:19 Labs: Abnormal lab results 11/13/19 11/13/19 11/14/19 Range/Units 19:56 19:56 07:19 WBC 3.9 L 3.6 L (4.5-11.0) K/mm3 MCHC 35 H 35 H (32-34) % Lymph % (Auto) 41.9 H 41.0 H (13.4-35.0) % [place] % (Auto) 13.6 H 11.6 H (0.0-7.3) % Seg Neutrophils # 1.7 L 1.6 L (1.8-7.7) K/mm3 Sodium 136 L (137-145) mmol/L Potassium (3.6-5.0) mmol/L Carbon Dioxide 20 L (22-30) mmol/L Glucose (75-100) mg/dL Calcium 8.1 L (8.4-10.2) mg/dL HDL Cholesterol (40-59) mg/dL 11/14/19 Range/Units 07:19 WBC (4.5-11.0) K/mm3 MCHC (32-34) % Lymph % (Auto) (13.4-35.0) % [place] % (Auto) (0.0-7.3) % Seg Neutrophils # (1.8-7.7) K/mm3 Sodium (137-145) mmol/L Potassium 3.4 L (3.6-5.0) mmol/L Carbon Dioxide (22-30) mmol/L Glucose 114 H (75-100) mg/dL Calcium (8.4-10.2) mg/dL HDL Cholesterol 32 L (40-59) mg/dL HEART Score - HEART Score Troponin: Troponin T < 0.010 ng/mL (0.00-0.029) 11/13/19 19:56
[2019-11-14] MEDS: ASPIRIN EC 81 MG TAB PO SCH (13:00)
[2019-11-14] MEDS: METOPROLOL TARTRATE 50 MG TAB PO SCH (13:40)
[2019-11-14] MEDS: oxyCODONE /ACETAMINOPHEN 5-325MG TAB PO PRN (15:50)
[2019-11-14] MEDS: ENOXAPARIN 40 MG/0.4 ML INJ SUB-Q SCH (21:52)
[2019-11-15 06:07] LABS: BUN/Creatinine Ratio 13; Blood Urea Nitrogen 12 mg/dL (9-20); Calcium 8.7 mg/dL (8.4-10.2); Hemolysis Index 4
[2019-11-15] MEDS: METOPROLOL TARTRATE 50 MG TAB PO SCH (09:43)
[2019-11-15] MEDS: ASPIRIN EC 81 MG TAB PO SCH (09:43)
[2019-11-15] MEDS ORDERED: MAGNESIUM SULFATE 4 GM/100 ML BAG IV ONE (10:00)
--- NOTE | 2019-11-15 12:56 | Progress Note ---
Assessment and Plan - Patient Problems (1) CVA (cerebral vascular accident) Current Visit: Yes Status: Acute Plan to address problem: Continue current medical regimen ASA carotid Doppler, echocardiogram and MRI of the brain. Neurologist consult CT of the head and CT of neck-showed no acute finding MRI of the brain-no acute finding. Reviewed SW note and PT note and recommendation-inpatient rehab recommended Will d/c pt when placement is confirmed (2) Hypertension-stable Current Visit: Yes Status: Acute Plan to address problem: Blood pressure appears stable. Monitor blood pressure Resume home med (3) CAD (coronary artery disease) Current Visit: Yes Status: Acute Resume home statin (4) HIV positive Current Visit: Yes Status: Acute Plan to address problem: Patient CD4 count was 19 about 3 weeks ago. Patient follows up with infectious disease clinic in [place]. Patient is on triumeq at home-not in hospital formulary Will resume pts home antiviral when available (5) DVT prophylaxis Current Visit: Yes Status: Acute Plan to address problem: Patient is placed on subcutaneous Lovenox. (6) Full code status Current Visit: Yes Status: Acute - Patient Problems (1) Hypokalemia Current Visit: Yes Status: Acute Plan to address problem: resolved Continue to monitor electrolytes (2) Hypomagnesemia Current Visit: Yes Status: Acute Plan to address problem: Replete magnesium Am lab-monitor mag level Subjective Date of service: 11/15/19 Principal diagnosis: CVA with left sided weakness Interval history: Patient seen at bedside in the his room. Patient alert and oriented. Noted left left side weakness on assessment. Reviewed lab, mar, and v/s. CT of the head -showed no acute process CT of the neck negative MRI of the brain-showed no acute finding Discussed radiology finding with patient-patient voiced understanding. Objective - Constitutional Vitals: Vital Signs - 12hr 11/15/19 11/15/19 11/15/19 05:36 08:00 09:35 Temperature 98.2 F Pulse Rate 76 77 Respiratory 16 Rate Blood Pressure 124/83 O2 Sat by Pulse 96 96 Oximetry 11/15/19 09:43 Temperature Pulse Rate 84 Respiratory Rate Blood Pressure 110/70 O2 Sat by Pulse Oximetry General appearance: Present: no acute distress - EENT Eyes: PERRL, EOM intact ENT: hearing intact, clear oral mucosa Ears: bilateral: normal - Neck Neck: supple, normal ROM - Respiratory Respiratory effort: normal Respiratory: bilateral: diminished - Breasts Breasts: normal - Cardiovascular Heart rate: 80 Rhythm: regular Heart Sounds: Present: S1 & S2. Absent: gallop, rub Extremities: abnormal (pt reports left sided weakness) - Genitourinary Male genitourinary: normal - Integumentary Integumentary: clear, warm, dry - Musculoskeletal Musculoskeletal: left sided weakness - Neurologic Neurologic: moves all extremities - Psychiatric Psychiatric: memory intact, appropriate mood/affect, intact judgment & insight - Allied health notes Allied health notes reviewed: nursing, PT - Labs CBC & Chem 7: 11/14/19 07:19 11/15/19 04:50 Labs: Abnormal lab results 11/15/19 Range/Units 04:50 Chloride 107.2 H (98-107) mmol/L Carbon Dioxide 21 L (22-30) mmol/L Magnesium 1.60 L (1.7-2.3) mg/dL HEART Score - HEART Score Troponin: Troponin T < 0.010 ng/mL (0.00-0.029) 11/13/19 19:56
[2019-11-15] MEDS: oxyCODONE /ACETAMINOPHEN 5-325MG TAB PO PRN (21:46)
[2019-11-15] MEDS: ENOXAPARIN 40 MG/0.4 ML INJ SUB-Q SCH ×2 (21:46→21:50)
--- NOTE | 2019-11-16 09:07 | Progress Note ---
Assessment and Plan Assessment and plan: CVA (cerebral vascular accident) Continue current medical regimen ASA Neurologist consulted CT of the head and CT of neck-showed no acute finding MRI of the brain-no acute finding. Reviewed SW note and PT note and recommendation-inpatient rehab recommended Will d/c pt when placement is confirmed Hypertension-stable Blood pressure appears stable. Monitor blood pressure Resume home med CAD (coronary artery disease) Continue statin HIV positive Patient CD4 count was 19 about 3 weeks ago. Patient follows up with infectious disease clinic in [place]. Resume medications Hypokalemia resolved Continue to monitor electrolytes Hypomagnesemia Replete magnesium Am lab-monitor mag level DVT prophylaxis Continue subcutaneous Lovenox. Full code status History Interval history: No new issues overnight. Hospitalist Physical - Constitutional Vitals: Temp Pulse Resp BP Pulse Ox 98.4 F 74 20 143/89 94 11/16/19 08:05 11/16/19 08:05 11/16/19 08:05 11/16/19 08:05 11/16/19 08:55 General appearance: Present: no acute distress - EENT Eyes: Present: PERRL, EOM intact ENT: hearing intact, clear oral mucosa, dentition normal - Neck Neck: Present: supple, normal ROM - Respiratory Respiratory effort: normal Respiratory: bilateral: CTA - Cardiovascular Rhythm: regular Heart Sounds: Present: S1 & S2. Absent: gallop, rub - Extremities Extremities: no ischemia, No edema, Full ROM - Abdominal General gastrointestinal: soft, non-tender, non-distended, normal bowel sounds - Integumentary Integumentary: Present: clear, warm, dry - Neurologic Neurologic: CNII-XII intact, moves all extremities HEART Score - HEART Score Troponin: Troponin T < 0.010 ng/mL (0.00-0.029) 11/13/19 19:56 Results - Labs CBC & Chem 7: 11/14/19 07:19 11/15/19 04:50 Labs: Laboratory Last Values WBC 3.6 K/mm3 (4.5-11.0) L 11/14/19 07:19 RBC 4.08 M/mm3 (3.65-5.03) 11/14/19 07:19 Hgb 13.1 gm/dl (11.8-15.2) 11/14/19 07:19 Hct 37.4 % (35.5-45.6) 11/14/19 07:19 MCV 92 fl (84-94) 11/14/19 07:19 MCH 32 pg (28-32) 11/14/19 07:19 MCHC 35 % (32-34) H 11/14/19 07:19 RDW 13.4 % (13.2-15.2) 11/14/19 07:19 Plt Count 181 K/mm3 (140-440) 11/14/19 07:19 Lymph % (Auto) 41.0 % (13.4-35.0) H 11/14/19 07:19 [place] % (Auto) 11.6 % (0.0-7.3) H 11/14/19 07:19 Eos % (Auto) 2.1 % (0.0-4.3) 11/14/19 07:19 Baso % (Auto) 0.8 % (0.0-1.8) 11/14/19 07:19 Lymph # 1.5 K/mm3 (1.2-5.4) 11/14/19 07:19 [place] # 0.4 K/mm3 (0.0-0.8) 11/14/19 07:19 Eos # 0.1 K/mm3 (0.0-0.4) 11/14/19 07:19 Baso # 0.0 K/mm3 (0.0-0.1) 11/14/19 07:19 Seg Neutrophils % 44.5 % (40.0-70.0) 11/14/19 07:19 Seg Neutrophils # 1.6 K/mm3 (1.8-7.7) L 11/14/19 07:19 PT 13.3 Sec. (12.2-14.9) 11/14/19 07:19 INR 0.99 (0.87-1.13) 11/14/19 07:19 APTT 30.4 Sec. (24.2-36.6) 11/13/19 19:56 Thrombin Time 18.1 Sec. (15.1-19.6) 11/13/19 19:56 Sodium 141 mmol/L (137-145) 11/15/19 04:50 Potassium 4.2 mmol/L (3.6-5.0) D 11/15/19 04:50 Chloride 107.2 mmol/L (98-107) H 11/15/19 04:50 Carbon Dioxide 21 mmol/L (22-30) L 11/15/19 04:50 Anion Gap 17 mmol/L 11/15/19 04:50 BUN 12 mg/dL (9-20) 11/15/19 04:50 Creatinine 0.9 mg/dL (0.8-1.3) 11/15/19 04:50 Estimated GFR > 60 ml/min 11/15/19 04:50 BUN/Creatinine Ratio 13 % 11/15/19 04:50 Glucose 87 mg/dL (75-100) 11/15/19 04:50 Calcium 8.7 mg/dL (8.4-10.2) 11/15/19 04:50 Phosphorus 3.60 mg/dL (2.5-4.5) 11/15/19 04:50 Magnesium 1.80 mg/dL (1.7-2.3) 11/16/19 05:44 Troponin T < 0.010 ng/mL (0.00-0.029) 11/13/19 19:56 Triglycerides 118 mg/dL (2-149) 11/14/19 07:19 Cholesterol 109 mg/dL (50-199) 11/14/19 07:19 LDL Cholesterol Direct 73 mg/dL (50-130) 11/14/19 07:19 HDL Cholesterol 32 mg/dL (40-59) L 11/14/19 07:19 Cholesterol/HDL Ratio 3.40 % 11/14/19 07:19 - Diagnostic Impressions Diagnostic Impressions: Echocardiogram 11/13/19 21:58 Transthoracic Echocardiogram Indication: STROKE BP: 116/78 HR: 74 Conclusions *The left ventricular chamber size is mildly dilated. *Global left ventricular systolic function is mildly decreased. *The estimated ejection fraction is 45-50%. *There is mild mitral regurgitation. *There is mild tricuspid regurgitation. *A patent foramen ovale is not demonstrated by agitated saline contrast. Findings Left Ventricle: The left ventricular chamber size is mildly dilated. Mild concentric left ventricular hypertrophy is observed. Global left ventricular systolic function is mildly decreased. The estimated ejection fraction is 45-50%. Left Atrium: The left atrial chamber size is normal. Right Ventricle: The right ventricular cavity size is normal. The right ventricular global systolic function is normal. Right Atrium: The right atrial cavity size is normal. A patent foramen ovale is not demonstrated by agitated saline contrast. Aortic Valve: The aortic valve is trileaflet. The aortic valve leaflets are mildly thickened. There is trace of aortic regurgitation. There is no evidence of aortic stenosis. Mitral Valve: The mitral valve leaflets are mildly thickened. There is mild mitral regurgitation. There is no evidence of mitral stenosis. Tricuspid Valve: There is mild tricuspid regurgitation. No pulmonary hypertension is noted. Pulmonic Valve: There is mild pulmonic regurgitation. Pericardium: There is no pericardial effusion. Aorta: There is no dilatation of the ascending aorta. There is no dilatation of the aortic root. Venous: The inferior vena cava appears normal in size. Contrast: Intravenous agitated saline contrast was used to assess intracardiac shunting. Measurements Chambers 2D Name Value Normal Range IVSd (2D) 0.84 cm (0.6 - 1.1) LVPWd (2D) 0.75 cm (0.6 - 1.1) IVS:LVPW ratio (2D) 1.12 ratio - LVIDd (2D) 5.07 cm (3.7 - 5.6) LVIDs (2D) 3.77 cm (2 - 3.8) LV FS (Teichholz) (2D) 25.6 % - LV FS (cube) (2D) 25.6 % - EF Teichholz (2D) 50.2 % - Ao root diameter (2D) 3.4 cm (2 - 3.7) LA dimension (AP) 2D 2.9 cm (1.9 - 4) LA:Ao ratio (2D) 0.85 ratio - Volumes/Mass Name Value Normal Range LA ESV SP 4CH (MOD) 27 ml - LA ESV SP 2CH (MOD) 37 ml - LV EDV SP 4CH (MOD) 123 ml - LV ESV SP 4CH (MOD) 45 ml - EF SP 4CH (MOD) 63 % - LV EDV SP 2CH (MOD) 70 ml - LV ESV SP 2CH (MOD) 39 ml - EF SP 2CH (MOD) 44 % - LV EDV BP 96 ml - LV ESV BP 43 ml - BP EF (MOD) 55 % - Diastolic/Systolic Function Name Value Normal Range MV E-wave Vmax 0.61 m/sec - MV deceleration time 250 msec - MV A-wave Vmax 0.53 m/sec - MV E:A ratio 1.1 ratio - LV septal e' Vmax 0.08 m/sec - LV lateral e' Vmax 0.09 m/sec - LV E:e' septal ratio 8 ratio - LV E:e' lateral ratio 7.1 ratio - Aortic Valve Name Value Normal Range AV VTI 22.7 cm - AV mean gradient 3 mmHg - LVOT diameter 2.1 cm - LVOT VTI 14.5 cm - LVOT mean gradient 1 mmHg - SV LVOT 50 ml - WADE (continuity VTI) 2.21 cm2 - Ascending Ao 2.6 cm - Tricuspid Valve Name Value Normal Range TR Vmax 2.09 m/sec - TR peak gradient 17 mmHg - Pulmonic Valve/Qp:Qs Name Value Normal Range PV Vmax 0.88 m/sec - PV VTI 15.7 cm - PV peak gradient 3 mmHg - PV mean gradient 1 mmHg - RI end-diastolic Vmax 0.69 m/sec - RVOT Vmax 0.47 m/sec - RVOT VTI 9.63 cm - RVOT peak gradient 1 mmHg - PV acceleration time 130 msec - Smiley/IV: Voiding Method Urinal IV Catheter Type [Left Upper INT / Saline Lock arm] IV Catheter Type [Left Forearm INT / Saline Lock ] Active Medications - Current Medications Current Medications: Generic Name Dose Route Start Last Admin Trade Name Freq PRN Reason Stop Dose Admin Acetaminophen 650 mg 11/13/19 21:45 Tylenol PO Q4H PRN Pain, Mild (1-3) Aspirin 81 mg 11/14/19 13:00 11/15/19 09:43 Halfprin Ec PO 81 mg QDAY ABDI Administration Atorvastatin Calcium 40 mg 11/13/19 22:00 11/15/19 21:46 Lipitor PO 40 mg QHS ABDI Administration Bisacodyl 10 mg 11/13/19 21:45 Dulcolax RI QDAY PRN Constipation Dextrose 0 ml 11/13/19 21:45 D50w (25gm) Syringe IV Q30MIN PRN Hypoglycemia Protocol Enoxaparin Sodium 40 mg 11/14/19 22:00 11/15/19 21:50 Enoxaparin SUB-Q Not Given QDAY@2200 ABDI Magnesium Hydroxide 30 ml 11/13/19 21:45 Milk Of Magnesia PO Q4H PRN Constipation Metoprolol Tartrate 50 mg 11/14/19 13:00 11/15/19 09:43 Metoprolol PO 50 mg QDAY ABDI Administration Ondansetron HCl 4 mg 11/13/19 21:45 Zofran IV Q8H PRN Nausea And Vomiting Oxycodone/Acetaminophen 1 tab 11/14/19 14:14 11/15/19 21:46 Percocet 5/325 PO 1 tab Q8H PRN Administration Pain, Moderate (4-6) Sodium Chloride 10 ml 11/13/19 21:45 Sodium Chloride Flush Syringe 10 Ml IV PRN PRN LINE FLUSH Sodium Chloride 10 ml 11/13/19 22:00 11/15/19 21:50 Sodium Chloride Flush Syringe 10 Ml IV Not Given BID ABDI Nutrition/Malnutrition Assess - Dietary Evaluation Nutrition/Malnutrition Findings: Nutrition Notes Start: 11/14/19 10:05 Freq: Status: Active Protocol: Document 11/14/19 10:05 LM (Rec: 11/14/19 10:08 LM [id number]) Nutrition Notes Need for Assessment generated from: MD Order Initial or Follow up Brief Note Current Diagnosis Coronary Artery Disease, Diabetes,Hypertension,Stroke Current Diet cardiac/consistent CHO Height 5 ft 11 in Weight 95.164 kg [place] Body Weight (kg) 78.18 BMI 29.2 Weight Status Overweight Subjective/Other Information MS consult for diet education. Pt not in room at time of visit. Nutrition Intervention Follow-Up By: 11/17/19 Additional Comments F/U for diet education
[2019-11-16] MEDS: oxyCODONE /ACETAMINOPHEN 5-325MG TAB PO PRN ×2 (11:44→21:16)
[2019-11-16] MEDS: METOPROLOL TARTRATE 50 MG TAB PO SCH (11:45)
[2019-11-16] MEDS: ASPIRIN EC 81 MG TAB PO SCH (11:46)
[2019-11-16] MEDS: ENOXAPARIN 40 MG/0.4 ML INJ SUB-Q SCH (21:17)
--- NOTE | 2019-11-17 09:40 | Vascular Lab Report ---
BILATERAL CAROTID DOPPLER ULTRASOUND INDICATION : stroke TECHNIQUE: Grayscale and color Doppler imaging performed through the neck. COMPARISON: 10/16/2018 FINDINGS: Right: There is minimal calcific plaque in the carotid bulb. Peak systolic velocity in the CCA is 1 05 cm/s with end-diastolic velocity of 21 cm/s. Peak systolic velocity in the proximal ICA is 97 cm/s with end-diastolic velocity of 17 cm/s. ICA to CCA ratio is less than 2. There is antegrade flow in the ECA and the vertebral artery. Left: There is mild noncalcified smooth plaque in the carotid bulb. Peak systolic velocity in the CCA is 107 cm/s with end-diastolic velocity of 21 cm/s. Peak systolic velocity in the proximal ICA is 78 cm/s with end-diastolic velocity of 26 cm/s. ICA to CCA ratio is less than 2. There is antegrade fl ow in the ECA and the vertebral artery. IMPRESSION: No hemodynamically significant stenosis by NASCET criteria. Doppler velocities indicate l ess than 50% luminal narrowing throughout both carotid systems. No significant change since 10/16/2018 exam. Signer Name: Jose Pino Jr, MD Signed: 11/17/2019 9:36 AM Workstation Name: [id number]
[2019-11-17] MEDS: ASPIRIN EC 81 MG TAB PO SCH (09:58)
[2019-11-17] MEDS: METOPROLOL TARTRATE 50 MG TAB PO SCH (09:59)
[2019-11-17] MEDS: oxyCODONE /ACETAMINOPHEN 5-325MG TAB PO PRN ×2 (10:13→22:24)
--- NOTE | 2019-11-17 11:36 | Progress Note ---
Assessment and Plan Assessment and plan: CVA (cerebral vascular accident) Continue current medical regimen ASA Neurologist consulted CT of the head and CT of neck-showed no acute finding MRI of the brain-no acute finding. Reviewed SW note and PT note and recommendation-inpatient rehab recommended Will d/c pt when placement is confirmed Hypertension-stable Blood pressure appears stable. Monitor blood pressure Resume home med CAD (coronary artery disease) Continue statin HIV positive Patient CD4 count was 19 about 3 weeks ago. Patient follows up with infectious disease clinic in [place]. Resume medications Hypokalemia resolved Continue to monitor electrolytes Hypomagnesemia Replete magnesium Am lab-monitor mag level DVT prophylaxis Continue subcutaneous Lovenox. Full code status PT recommend acute rehab Awaiting acute rehab placement/insurance authorization Continue current management Plan of care reviewed with the patient and his nurse History Interval history: I have seen and examined the patient at the bedside this morning Patient's chart and medications reviewed Patient feels slightly better no new complaints Admitted with neurological symptoms to rule out acute CVA Acute CVA neuro work-up negative so far Patient has no new complaints Vital signs noted Hospitalist Physical - Constitutional Vitals: Temp Pulse Resp BP Pulse Ox 98.0 F 64 20 105/62 95 11/17/19 07:31 11/17/19 04:03 11/17/19 07:31 11/17/19 07:31 11/17/19 08:23 General appearance: Present: no acute distress, well-nourished - EENT Eyes: Present: PERRL, EOM intact - Neck Neck: Present: supple, normal ROM - Respiratory Respiratory effort: normal Respiratory: bilateral: diminished, negative: rales, rhonchi, wheezing - Cardiovascular Rhythm: regular Heart Sounds: Present: S1 & S2 - Extremities Extremities: no ischemia, No edema - Abdominal General gastrointestinal: soft, non-tender, non-distended, normal bowel sounds - Integumentary Integumentary: Present: clear, warm - Psychiatric Psychiatric: appropriate mood/affect, cooperative - Neurologic Neurologic: moves all extremities, other (Generalized weakness) HEART Score - HEART Score Troponin: Troponin T < 0.010 ng/mL (0.00-0.029) 11/13/19 19:56 Results - Labs CBC & Chem 7: 11/14/19 07:19 11/15/19 04:50 Labs: Laboratory Last Values WBC 3.6 K/mm3 (4.5-11.0) L 11/14/19 07:19 RBC 4.08 M/mm3 (3.65-5.03) 11/14/19 07:19 Hgb 13.1 gm/dl (11.8-15.2) 11/14/19 07:19 Hct 37.4 % (35.5-45.6) 11/14/19 07:19 MCV 92 fl (84-94) 11/14/19 07:19 MCH 32 pg (28-32) 11/14/19 07:19 MCHC 35 % (32-34) H 11/14/19 07:19 RDW 13.4 % (13.2-15.2) 11/14/19 07:19 Plt Count 181 K/mm3 (140-440) 11/14/19 07:19 Lymph % (Auto) 41.0 % (13.4-35.0) H 11/14/19 07:19 [place] % (Auto) 11.6 % (0.0-7.3) H 11/14/19 07:19 Eos % (Auto) 2.1 % (0.0-4.3) 11/14/19 07:19 Baso % (Auto) 0.8 % (0.0-1.8) 11/14/19 07:19 Lymph # 1.5 K/mm3 (1.2-5.4) 11/14/19 07:19 [place] # 0.4 K/mm3 (0.0-0.8) 11/14/19 07:19 Eos # 0.1 K/mm3 (0.0-0.4) 11/14/19 07:19 Baso # 0.0 K/mm3 (0.0-0.1) 11/14/19 07:19 Seg Neutrophils % 44.5 % (40.0-70.0) 11/14/19 07:19 Seg Neutrophils # 1.6 K/mm3 (1.8-7.7) L 11/14/19 07:19 PT 13.3 Sec. (12.2-14.9) 11/14/19 07:19 INR 0.99 (0.87-1.13) 11/14/19 07:19 APTT 30.4 Sec. (24.2-36.6) 11/13/19 19:56 Thrombin Time 18.1 Sec. (15.1-19.6) 11/13/19 19:56 Sodium 141 mmol/L (137-145) 11/15/19 04:50 Potassium 4.2 mmol/L (3.6-5.0) D 11/15/19 04:50 Chloride 107.2 mmol/L (98-107) H 11/15/19 04:50 Carbon Dioxide 21 mmol/L (22-30) L 11/15/19 04:50 Anion Gap 17 mmol/L 11/15/19 04:50 BUN 12 mg/dL (9-20) 11/15/19 04:50 Creatinine 0.9 mg/dL (0.8-1.3) 11/15/19 04:50 Estimated GFR > 60 ml/min 11/15/19 04:50 BUN/Creatinine Ratio 13 % 11/15/19 04:50 Glucose 87 mg/dL (75-100) 11/15/19 04:50 POC Glucose 101 (70-105) 11/17/19 07:47 Calcium 8.7 mg/dL (8.4-10.2) 11/15/19 04:50 Phosphorus 3.60 mg/dL (2.5-4.5) 11/15/19 04:50 Magnesium 1.80 mg/dL (1.7-2.3) 11/16/19 05:44 Troponin T < 0.010 ng/mL (0.00-0.029) 11/13/19 19:56 Triglycerides 118 mg/dL (2-149) 11/14/19 07:19 Cholesterol 109 mg/dL (50-199) 11/14/19 07:19 LDL Cholesterol Direct 73 mg/dL (50-130) 11/14/19 07:19 HDL Cholesterol 32 mg/dL (40-59) L 11/14/19 07:19 Cholesterol/HDL Ratio 3.40 % 11/14/19 07:19 - Diagnostic Impressions Diagnostic Impressions: Echocardiogram 11/13/19 21:58 Transthoracic Echocardiogram Indication: STROKE BP: 116/78 HR: 74 Conclusions *The left ventricular chamber size is mildly dilated. *Global left ventricular systolic function is mildly decreased. *The estimated ejection fraction is 45-50%. *There is mild mitral regurgitation. *There is mild tricuspid regurgitation. *A patent foramen ovale is not demonstrated by agitated saline contrast. Findings Left Ventricle: The left ventricular chamber size is mildly dilated. Mild concentric left ventricular hypertrophy is observed. Global left ventricular systolic function is mildly decreased. The estimated ejection fraction is 45-50%. Left Atrium: The left atrial chamber size is normal. Right Ventricle: The right ventricular cavity size is normal. The right ventricular global systolic function is normal. Right Atrium: The right atrial cavity size is normal. A patent foramen ovale is not demonstrated by agitated saline contrast. Aortic Valve: The aortic valve is trileaflet. The aortic valve leaflets are mildly thickened. There is trace of aortic regurgitation. There is no evidence of aortic stenosis. Mitral Valve: The mitral valve leaflets are mildly thickened. There is mild mitral regurgitation. There is no evidence of mitral stenosis. Tricuspid Valve: There is mild tricuspid regurgitation. No pulmonary hypertension is noted. Pulmonic Valve: There is mild pulmonic regurgitation. Pericardium: There is no pericardial effusion. Aorta: There is no dilatation of the ascending aorta. There is no dilatation of the aortic root. Venous: The inferior vena cava appears normal in size. Contrast: Intravenous agitated saline contrast was used to assess intracardiac shunting. Measurements Chambers 2D Name Value Normal Range IVSd (2D) 0.84 cm (0.6 - 1.1) LVPWd (2D) 0.75 cm (0.6 - 1.1) IVS:LVPW ratio (2D) 1.12 ratio - LVIDd (2D) 5.07 cm (3.7 - 5.6) LVIDs (2D) 3.77 cm (2 - 3.8) LV FS (Teichholz) (2D) 25.6 % - LV FS (cube) (2D) 25.6 % - EF Teichholz (2D) 50.2 % - Ao root diameter (2D) 3.4 cm (2 - 3.7) LA dimension (AP) 2D 2.9 cm (1.9 - 4) LA:Ao ratio (2D) 0.85 ratio - Volumes/Mass Name Value Normal Range LA ESV SP 4CH (MOD) 27 ml - LA ESV SP 2CH (MOD) 37 ml - LV EDV SP 4CH (MOD) 123 ml - LV ESV SP 4CH (MOD) 45 ml - EF SP 4CH (MOD) 63 % - LV EDV SP 2CH (MOD) 70 ml - LV ESV SP 2CH (MOD) 39 ml - EF SP 2CH (MOD) 44 % - LV EDV BP 96 ml - LV ESV BP 43 ml - BP EF (MOD) 55 % - Diastolic/Systolic Function Name Value Normal Range MV E-wave Vmax 0.61 m/sec - MV deceleration time 250 msec - MV A-wave Vmax 0.53 m/sec - MV E:A ratio 1.1 ratio - LV septal e' Vmax 0.08 m/sec - LV lateral e' Vmax 0.09 m/sec - LV E:e' septal ratio 8 ratio - LV E:e' lateral ratio 7.1 ratio - Aortic Valve Name Value Normal Range AV VTI 22.7 cm - AV mean gradient 3 mmHg - LVOT diameter 2.1 cm - LVOT VTI 14.5 cm - LVOT mean gradient 1 mmHg - SV LVOT 50 ml - WADE (continuity VTI) 2.21 cm2 - Ascending Ao 2.6 cm - Tricuspid Valve Name Value Normal Range TR Vmax 2.09 m/sec - TR peak gradient 17 mmHg - Pulmonic Valve/Qp:Qs Name Value Normal Range PV Vmax 0.88 m/sec - PV VTI 15.7 cm - PV peak gradient 3 mmHg - PV mean gradient 1 mmHg - CA end-diastolic Vmax 0.69 m/sec - RVOT Vmax 0.47 m/sec - RVOT VTI 9.63 cm - RVOT peak gradient 1 mmHg - PV acceleration time 130 msec - Smiley/IV: Voiding Method Urinal IV Catheter Type [Left Upper INT / Saline Lock arm] IV Catheter Type [Left Forearm INT / Saline Lock ] Active Medications - Current Medications Current Medications: Generic Name Dose Route Start Last Admin Trade Name Freq PRN Reason Stop Dose Admin Acetaminophen 650 mg 11/13/19 21:45 Tylenol PO Q4H PRN Pain, Mild (1-3) Aspirin 81 mg 11/14/19 13:00 11/17/19 09:58 Halfprin Ec PO 81 mg QDAY ABDI Administration Atorvastatin Calcium 40 mg 11/13/19 22:00 11/16/19 21:15 Lipitor PO 40 mg QHS ABDI Administration Bisacodyl 10 mg 11/13/19 21:45 Dulcolax [place] QDAY PRN Constipation Dextrose 0 ml 11/13/19 21:45 D50w (25gm) Syringe IV Q30MIN PRN Hypoglycemia Protocol Enoxaparin Sodium 40 mg 11/14/19 22:00 11/16/19 21:17 Enoxaparin SUB-Q Not Given QDAY@2200 ABDI Magnesium Hydroxide 30 ml 11/13/19 21:45 Milk Of Magnesia PO Q4H PRN Constipation Metoprolol Tartrate 50 mg 11/14/19 13:00 11/17/19 09:59 Metoprolol PO 50 mg QDAY ABDI Administration Ondansetron HCl 4 mg 11/13/19 21:45 Zofran IV Q8H PRN Nausea And Vomiting Oxycodone/Acetaminophen 1 tab 11/14/19 14:14 11/17/19 10:13 Percocet 5/325 PO 1 tab Q8H PRN Administration Pain, Moderate (4-6) Sodium Chloride 10 ml 11/13/19 21:45 Sodium Chloride Flush Syringe 10 Ml IV PRN PRN LINE FLUSH Sodium Chloride 10 ml 11/13/19 22:00 11/17/19 09:59 Sodium Chloride Flush Syringe 10 Ml IV 10 ml BID ABDI Administration Nutrition/Malnutrition Assess - Dietary Evaluation Nutrition/Malnutrition Findings: Nutrition Notes Start: 11/14/19 10:05 Freq: Status: Active Protocol: Document 11/14/19 10:05 LM (Rec: 11/14/19 10:08 LM [email or web address]) Nutrition Notes Need for Assessment generated from: MD Order Initial or Follow up Brief Note Current Diagnosis Coronary Artery Disease, Diabetes,Hypertension,Stroke Current Diet cardiac/consistent CHO Height 5 ft 11 in Weight 95.164 kg [place] Body Weight (kg) 78.18 BMI 29.2 Weight Status Overweight Subjective/Other Information MS consult for diet education. Pt not in room at time of visit. Nutrition Intervention Follow-Up By: 11/17/19 Additional Comments F/U for diet education
[2019-11-17] MEDS: ENOXAPARIN 40 MG/0.4 ML INJ SUB-Q SCH (22:25)
[2019-11-18] MEDS: METOPROLOL TARTRATE 50 MG TAB PO SCH (10:39)
[2019-11-18] MEDS: ASPIRIN EC 81 MG TAB PO SCH (10:39)
--- NOTE | 2019-11-18 12:03 | Progress Note ---
Assessment and Plan Assessment and plan: --CVA (cerebral vascular accident) Continue aspirin and statin Neuro work-up so far is negative CT of the head and CT of neck-showed no acute finding MRI of the brain-no acute finding. Acute CVA ruled out PT note and recommendation-inpatient rehab recommended Will d/c pt when placement is confirmed --Hypertension-stable Blood pressure appears stable. Monitor blood pressure Resume home med --CAD (coronary artery disease) Continue aspirin and statin --HIV positive Patient CD4 count was 19 about 3 weeks ago. Patient follows up with infectious disease clinic in [place]. Resume medications --Hypokalemia resolved,Continue to monitor electrolytes --Hypomagnesemia Replete magnesium Am lab-monitor mag level --DVT prophylaxis Continue subcutaneous Lovenox. --Full code status PT recommend acute rehab Awaiting acute rehab placement/insurance authorization Versus home with home health Plan of care reviewed with the patient and his nurse Hospitalist Physical - Constitutional Vitals: Temp Pulse Resp BP Pulse Ox 97.3 F L 60 18 111/71 96 11/18/19 08:20 11/18/19 10:00 11/18/19 10:00 11/18/19 08:21 11/18/19 10:00 General appearance: Present: no acute distress, well-nourished - EENT Eyes: Present: PERRL, EOM intact - Neck Neck: Present: supple, normal ROM - Respiratory Respiratory effort: normal Respiratory: bilateral: diminished, negative: rales, rhonchi, wheezing - Cardiovascular Rhythm: regular Heart Sounds: Present: S1 & S2 - Extremities Extremities: no ischemia, No edema Extremity abnormal: other (Generalized weakness) - Abdominal General gastrointestinal: soft, non-tender, non-distended, normal bowel sounds - Integumentary Integumentary: Present: clear, warm - Psychiatric Psychiatric: appropriate mood/affect, cooperative - Neurologic Neurologic: moves all extremities HEART Score - HEART Score Troponin: Troponin T < 0.010 ng/mL (0.00-0.029) 11/13/19 19:56 Results - Labs CBC & Chem 7: 11/14/19 07:19 11/15/19 04:50 Labs: Laboratory Last Values WBC 3.6 K/mm3 (4.5-11.0) L 11/14/19 07:19 RBC 4.08 M/mm3 (3.65-5.03) 11/14/19 07:19 Hgb 13.1 gm/dl (11.8-15.2) 11/14/19 07:19 Hct 37.4 % (35.5-45.6) 11/14/19 07:19 MCV 92 fl (84-94) 11/14/19 07:19 MCH 32 pg (28-32) 11/14/19 07:19 MCHC 35 % (32-34) H 11/14/19 07:19 RDW 13.4 % (13.2-15.2) 11/14/19 07:19 Plt Count 181 K/mm3 (140-440) 11/14/19 07:19 Lymph % (Auto) 41.0 % (13.4-35.0) H 11/14/19 07:19 [place] % (Auto) 11.6 % (0.0-7.3) H 11/14/19 07:19 Eos % (Auto) 2.1 % (0.0-4.3) 11/14/19 07:19 Baso % (Auto) 0.8 % (0.0-1.8) 11/14/19 07:19 Lymph # 1.5 K/mm3 (1.2-5.4) 11/14/19 07:19 [place] # 0.4 K/mm3 (0.0-0.8) 11/14/19 07:19 Eos # 0.1 K/mm3 (0.0-0.4) 11/14/19 07:19 Baso # 0.0 K/mm3 (0.0-0.1) 11/14/19 07:19 Seg Neutrophils % 44.5 % (40.0-70.0) 11/14/19 07:19 Seg Neutrophils # 1.6 K/mm3 (1.8-7.7) L 11/14/19 07:19 PT 13.3 Sec. (12.2-14.9) 11/14/19 07:19 INR 0.99 (0.87-1.13) 11/14/19 07:19 APTT 30.4 Sec. (24.2-36.6) 11/13/19 19:56 Thrombin Time 18.1 Sec. (15.1-19.6) 11/13/19 19:56 Sodium 141 mmol/L (137-145) 11/15/19 04:50 Potassium 4.2 mmol/L (3.6-5.0) D 11/15/19 04:50 Chloride 107.2 mmol/L (98-107) H 11/15/19 04:50 Carbon Dioxide 21 mmol/L (22-30) L 11/15/19 04:50 Anion Gap 17 mmol/L 11/15/19 04:50 BUN 12 mg/dL (9-20) 11/15/19 04:50 Creatinine 0.9 mg/dL (0.8-1.3) 11/15/19 04:50 Estimated GFR > 60 ml/min 11/15/19 04:50 BUN/Creatinine Ratio 13 % 11/15/19 04:50 Glucose 87 mg/dL (75-100) 11/15/19 04:50 POC Glucose 93 (70-105) 11/18/19 01:47 Calcium 8.7 mg/dL (8.4-10.2) 11/15/19 04:50 Phosphorus 3.60 mg/dL (2.5-4.5) 11/15/19 04:50 Magnesium 1.80 mg/dL (1.7-2.3) 11/16/19 05:44 Troponin T < 0.010 ng/mL (0.00-0.029) 11/13/19 19:56 Triglycerides 118 mg/dL (2-149) 11/14/19 07:19 Cholesterol 109 mg/dL (50-199) 11/14/19 07:19 LDL Cholesterol Direct 73 mg/dL (50-130) 11/14/19 07:19 HDL Cholesterol 32 mg/dL (40-59) L 11/14/19 07:19 Cholesterol/HDL Ratio 3.40 % 11/14/19 07:19 - Diagnostic Impressions Diagnostic Impressions: Echocardiogram 11/13/19 21:58 Transthoracic Echocardiogram Indication: STROKE BP: 116/78 HR: 74 Conclusions *The left ventricular chamber size is mildly dilated. *Global left ventricular systolic function is mildly decreased. *The estimated ejection fraction is 45-50%. *There is mild mitral regurgitation. *There is mild tricuspid regurgitation. *A patent foramen ovale is not demonstrated by agitated saline contrast. Findings Left Ventricle: The left ventricular chamber size is mildly dilated. Mild concentric left ventricular hypertrophy is observed. Global left ventricular systolic function is mildly decreased. The estimated ejection fraction is 45-50%. Left Atrium: The left atrial chamber size is normal. Right Ventricle: The right ventricular cavity size is normal. The right ventricular global systolic function is normal. Right Atrium: The right atrial cavity size is normal. A patent foramen ovale is not demonstrated by agitated saline contrast. Aortic Valve: The aortic valve is trileaflet. The aortic valve leaflets are mildly thickened. There is trace of aortic regurgitation. There is no evidence of aortic stenosis. Mitral Valve: The mitral valve leaflets are mildly thickened. There is mild mitral regurgitation. There is no evidence of mitral stenosis. Tricuspid Valve: There is mild tricuspid regurgitation. No pulmonary hypertension is noted. Pulmonic Valve: There is mild pulmonic regurgitation. Pericardium: There is no pericardial effusion. Aorta: There is no dilatation of the ascending aorta. There is no dilatation of the aortic root. Venous: The inferior vena cava appears normal in size. Contrast: Intravenous agitated saline contrast was used to assess intracardiac shunting. Measurements Chambers 2D Name Value Normal Range IVSd (2D) 0.84 cm (0.6 - 1.1) LVPWd (2D) 0.75 cm (0.6 - 1.1) IVS:LVPW ratio (2D) 1.12 ratio - LVIDd (2D) 5.07 cm (3.7 - 5.6) LVIDs (2D) 3.77 cm (2 - 3.8) LV FS (Teichholz) (2D) 25.6 % - LV FS (cube) (2D) 25.6 % - EF Teichholz (2D) 50.2 % - Ao root diameter (2D) 3.4 cm (2 - 3.7) LA dimension (AP) 2D 2.9 cm (1.9 - 4) LA:Ao ratio (2D) 0.85 ratio - Volumes/Mass Name Value Normal Range LA ESV SP 4CH (MOD) 27 ml - LA ESV SP 2CH (MOD) 37 ml - LV EDV SP 4CH (MOD) 123 ml - LV ESV SP 4CH (MOD) 45 ml - EF SP 4CH (MOD) 63 % - LV EDV SP 2CH (MOD) 70 ml - LV ESV SP 2CH (MOD) 39 ml - EF SP 2CH (MOD) 44 % - LV EDV BP 96 ml - LV ESV BP 43 ml - BP EF (MOD) 55 % - Diastolic/Systolic Function Name Value Normal Range MV E-wave Vmax 0.61 m/sec - MV deceleration time 250 msec - MV A-wave Vmax 0.53 m/sec - MV E:A ratio 1.1 ratio - LV septal e' Vmax 0.08 m/sec - LV lateral e' Vmax 0.09 m/sec - LV E:e' septal ratio 8 ratio - LV E:e' lateral ratio 7.1 ratio - Aortic Valve Name Value Normal Range AV VTI 22.7 cm - AV mean gradient 3 mmHg - LVOT diameter 2.1 cm - LVOT VTI 14.5 cm - LVOT mean gradient 1 mmHg - SV LVOT 50 ml - WADE (continuity VTI) 2.21 cm2 - Ascending Ao 2.6 cm - Tricuspid Valve Name Value Normal Range TR Vmax 2.09 m/sec - TR peak gradient 17 mmHg - Pulmonic Valve/Qp:Qs Name Value Normal Range PV Vmax 0.88 m/sec - PV VTI 15.7 cm - PV peak gradient 3 mmHg - PV mean gradient 1 mmHg - IA end-diastolic Vmax 0.69 m/sec - RVOT Vmax 0.47 m/sec - RVOT VTI 9.63 cm - RVOT peak gradient 1 mmHg - PV acceleration time 130 msec - Smiley/IV: Voiding Method Urinal IV Catheter Type [Left Upper INT / Saline Lock arm] IV Catheter Type [Left Forearm INT / Saline Lock ] Active Medications - Current Medications Current Medications: Generic Name Dose Route Start Last Admin Trade Name Freq PRN Reason Stop Dose Admin Acetaminophen 650 mg 11/13/19 21:45 Tylenol PO Q4H PRN Pain, Mild (1-3) Aspirin 81 mg 11/14/19 13:00 11/18/19 10:39 Halfprin Ec PO 81 mg QDAY ABDI Administration Atorvastatin Calcium 40 mg 11/13/19 22:00 11/17/19 22:24 Lipitor PO 40 mg QHS ABDI Administration Bisacodyl 10 mg 11/13/19 21:45 Dulcolax [place] QDAY PRN Constipation Dextrose 0 ml 11/13/19 21:45 D50w (25gm) Syringe IV Q30MIN PRN Hypoglycemia Protocol Enoxaparin Sodium 40 mg 11/14/19 22:00 11/17/19 22:25 Enoxaparin SUB-Q Not Given QDAY@2200 ABDI Magnesium Hydroxide 30 ml 11/13/19 21:45 Milk Of Magnesia PO Q4H PRN Constipation Metoprolol Tartrate 50 mg 11/14/19 13:00 11/18/19 10:39 Metoprolol PO 50 mg QDAY ABDI Administration Ondansetron HCl 4 mg 11/13/19 21:45 Zofran IV Q8H PRN Nausea And Vomiting Oxycodone/Acetaminophen 1 tab 11/14/19 14:14 11/17/19 22:24 Percocet 5/325 PO 1 tab Q8H PRN Administration Pain, Moderate (4-6) Sodium Chloride 10 ml 11/13/19 21:45 Sodium Chloride Flush Syringe 10 Ml IV PRN PRN LINE FLUSH Sodium Chloride 10 ml 11/13/19 22:00 11/18/19 09:55 Sodium Chloride Flush Syringe 10 Ml IV Not Given BID ABDI Nutrition/Malnutrition Assess - Dietary Evaluation Nutrition/Malnutrition Findings: Nutrition Notes Start: 11/14/19 10:05 Freq: Status: Active Protocol: Document 11/17/19 13:26 GUILLERMO (Rec: 11/17/19 14:32 [email or web address] [id number]) Co-Sign 11/17/19 13:26 LM Nutrition Notes Need for Assessment generated from: MD Order Initial or Follow up Assessment Current Diagnosis Coronary Artery Disease, Hypertension,Stroke Other Pertinent Diagnosis HIV Current Diet Cardiac/Consistent CHO Diet + Ensure Labs/Tests POC Glu 106 Pertinent Medications Reviewed Height 5 ft 11 in Weight 97.2 kg [place] Body Weight (kg) 78.18 BMI 29.9 Intake Prior to Admission Excellent Weight Status Overweight Subjective/Other Information MD consult for ONS and F/U for diet ed. RN reports pt eating 100% of meals and supplements . Pt states difficulty chewing . Pt given diet ed for stroke nutrition therapy. Percent of energy/protein needs met: 100%/100% Burn Absent Trauma Absent Difficulty In Chewing Food Allergy No Current % PO Good (75-100%) Minimum of two criteria No Reduced Anode Worker Strength Measurably Reduced (severe) #1 Nutrition Diagnosis Food and nutrition-related knowledge deficit Etiology Limited prior diet education for stroke As Evidenced by Signs and Symptoms pt accepted handout Is patient on ventilator? No Is Patient Ambulatory and/or Out of Bed Yes REE-([place]-St. Jeor-ambulatory/OOB) [ 2397.369 [id number]] Kcal/Kg value to use for calculation 22 Approximate Energy Requirements Using 2138 kcal/Kg Calculation Used for Recommendations Kcal/kg Additional Notes Protein needs are 70-88 (0.8-1 g/kg AdjBW) Fluid needs are 1 ml/kcal Nutrition Intervention Change Diet Order: Continue Add Supplement/Snack (indicate name/kcal Glucerna daily /protein ) Provides kCal: 220 Provides Protein (gm) 10 Teaching Recipient Patient Learning Readiness Good Teaching Methods Discussion,Handout Response to Teaching Verbalize understanding Education Handouts Provided Stroke Nutrition Therapy Barriers to Learning No Barriers RD phone number provided Yes Patient aware of follow up options Yes Goal #1 Meet 75% of energy and protein needs Anticipated Discharge Needs: Cardiac/Consistent CHO Revisit per MD consult or patient Sign Off request:
[2019-11-18] MEDS: oxyCODONE /ACETAMINOPHEN 5-325MG TAB PO PRN ×2 (12:23→21:48)
[2019-11-18] MEDS: ENOXAPARIN 40 MG/0.4 ML INJ SUB-Q SCH (21:02)
[2019-11-19 09:33] VITALS: BP 103/65
[2019-11-19] MEDS: ASPIRIN EC 81 MG TAB PO SCH (09:36)
[2019-11-19] MEDS: METOPROLOL TARTRATE 50 MG TAB PO SCH (09:36)
[2019-11-19] MEDS: oxyCODONE /ACETAMINOPHEN 5-325MG TAB PO PRN (09:40)
--- NOTE | 2019-11-19 10:40 | Progress Note ---
Assessment and Plan Assessment and plan: --CVA (cerebral vascular accident) Continue aspirin and statin Neuro work-up so far is negative CT of the head and CT of neck-showed no acute finding MRI of the brain-no acute finding. Acute CVA ruled out PT note and recommendation-inpatient rehab recommended Will d/c pt when placement is confirmed --Hypertension-stable Blood pressure appears stable. Monitor blood pressure Resume home med --CAD (coronary artery disease) Continue aspirin and statin --HIV positive Patient CD4 count was 19 about 3 weeks ago. Patient follows up with infectious disease clinic in [place]. Resume medications --Hypokalemia resolved,Continue to monitor electrolytes --Hypomagnesemia Replete magnesium Am lab-monitor mag level --DVT prophylaxis Continue subcutaneous Lovenox. --Full code status PT recommend acute rehab Awaiting acute rehab placement/insurance authorization Versus home with home health Plan of care reviewed with the patient and his nurse Hospitalist Physical - Constitutional Vitals: Temp Pulse Resp BP Pulse Ox 97.4 F L 74 18 103/65 98 11/19/19 09:06 11/19/19 09:36 11/19/19 09:06 11/19/19 09:06 11/19/19 09:24 General appearance: Present: no acute distress, well-nourished HEART Score - HEART Score Troponin: Troponin T < 0.010 ng/mL (0.00-0.029) 11/13/19 19:56 Results - Labs CBC & Chem 7: 11/14/19 07:19 11/15/19 04:50 Labs: Laboratory Last Values WBC 3.6 K/mm3 (4.5-11.0) L 11/14/19 07:19 RBC 4.08 M/mm3 (3.65-5.03) 11/14/19 07:19 Hgb 13.1 gm/dl (11.8-15.2) 11/14/19 07:19 Hct 37.4 % (35.5-45.6) 11/14/19 07:19 MCV 92 fl (84-94) 11/14/19 07:19 MCH 32 pg (28-32) 11/14/19 07:19 MCHC 35 % (32-34) H 11/14/19 07:19 RDW 13.4 % (13.2-15.2) 11/14/19 07:19 Plt Count 181 K/mm3 (140-440) 11/14/19 07:19 Lymph % (Auto) 41.0 % (13.4-35.0) H 11/14/19 07:19 [place] % (Auto) 11.6 % (0.0-7.3) H 11/14/19 07:19 Eos % (Auto) 2.1 % (0.0-4.3) 11/14/19 07:19 Baso % (Auto) 0.8 % (0.0-1.8) 11/14/19 07:19 Lymph # 1.5 K/mm3 (1.2-5.4) 11/14/19 07:19 [place] # 0.4 K/mm3 (0.0-0.8) 11/14/19 07:19 Eos # 0.1 K/mm3 (0.0-0.4) 11/14/19 07:19 Baso # 0.0 K/mm3 (0.0-0.1) 11/14/19 07:19 Seg Neutrophils % 44.5 % (40.0-70.0) 11/14/19 07:19 Seg Neutrophils # 1.6 K/mm3 (1.8-7.7) L 11/14/19 07:19 PT 13.3 Sec. (12.2-14.9) 11/14/19 07:19 INR 0.99 (0.87-1.13) 11/14/19 07:19 APTT 30.4 Sec. (24.2-36.6) 11/13/19 19:56 Thrombin Time 18.1 Sec. (15.1-19.6) 11/13/19 19:56 Sodium 141 mmol/L (137-145) 11/15/19 04:50 Potassium 4.2 mmol/L (3.6-5.0) D 11/15/19 04:50 Chloride 107.2 mmol/L (98-107) H 11/15/19 04:50 Carbon Dioxide 21 mmol/L (22-30) L 11/15/19 04:50 Anion Gap 17 mmol/L 11/15/19 04:50 BUN 12 mg/dL (9-20) 11/15/19 04:50 Creatinine 0.9 mg/dL (0.8-1.3) 11/15/19 04:50 Estimated GFR > 60 ml/min 11/15/19 04:50 BUN/Creatinine Ratio 13 % 11/15/19 04:50 Glucose 87 mg/dL (75-100) 11/15/19 04:50 POC Glucose 93 (70-105) 11/18/19 01:47 Calcium 8.7 mg/dL (8.4-10.2) 11/15/19 04:50 Phosphorus 3.60 mg/dL (2.5-4.5) 11/15/19 04:50 Magnesium 1.80 mg/dL (1.7-2.3) 11/16/19 05:44 Troponin T < 0.010 ng/mL (0.00-0.029) 11/13/19 19:56 Triglycerides 118 mg/dL (2-149) 11/14/19 07:19 Cholesterol 109 mg/dL (50-199) 11/14/19 07:19 LDL Cholesterol Direct 73 mg/dL (50-130) 11/14/19 07:19 HDL Cholesterol 32 mg/dL (40-59) L 11/14/19 07:19 Cholesterol/HDL Ratio 3.40 % 11/14/19 07:19 - Diagnostic Impressions Diagnostic Impressions: Echocardiogram 11/13/19 21:58 Transthoracic Echocardiogram Indication: STROKE BP: 116/78 HR: 74 Conclusions *The left ventricular chamber size is mildly dilated. *Global left ventricular systolic function is mildly decreased. *The estimated ejection fraction is 45-50%. *There is mild mitral regurgitation. *There is mild tricuspid regurgitation. *A patent foramen ovale is not demonstrated by agitated saline contrast. Findings Left Ventricle: The left ventricular chamber size is mildly dilated. Mild concentric left ventricular hypertrophy is observed. Global left ventricular systolic function is mildly decreased. The estimated ejection fraction is 45-50%. Left Atrium: The left atrial chamber size is normal. Right Ventricle: The right ventricular cavity size is normal. The right ventricular global systolic function is normal. Right Atrium: The right atrial cavity size is normal. A patent foramen ovale is not demonstrated by agitated saline contrast. Aortic Valve: The aortic valve is trileaflet. The aortic valve leaflets are mildly thickened. There is trace of aortic regurgitation. There is no evidence of aortic stenosis. Mitral Valve: The mitral valve leaflets are mildly thickened. There is mild mitral regurgitation. There is no evidence of mitral stenosis. Tricuspid Valve: There is mild tricuspid regurgitation. No pulmonary hypertension is noted. Pulmonic Valve: There is mild pulmonic regurgitation. Pericardium: There is no pericardial effusion. Aorta: There is no dilatation of the ascending aorta. There is no dilatation of the aortic root. Venous: The inferior vena cava appears normal in size. Contrast: Intravenous agitated saline contrast was used to assess intracardiac shunting. Measurements Chambers 2D Name Value Normal Range IVSd (2D) 0.84 cm (0.6 - 1.1) LVPWd (2D) 0.75 cm (0.6 - 1.1) IVS:LVPW ratio (2D) 1.12 ratio - LVIDd (2D) 5.07 cm (3.7 - 5.6) LVIDs (2D) 3.77 cm (2 - 3.8) LV FS (Teichholz) (2D) 25.6 % - LV FS (cube) (2D) 25.6 % - EF Teichholz (2D) 50.2 % - Ao root diameter (2D) 3.4 cm (2 - 3.7) LA dimension (AP) 2D 2.9 cm (1.9 - 4) LA:Ao ratio (2D) 0.85 ratio - Volumes/Mass Name Value Normal Range LA ESV SP 4CH (MOD) 27 ml - LA ESV SP 2CH (MOD) 37 ml - LV EDV SP 4CH (MOD) 123 ml - LV ESV SP 4CH (MOD) 45 ml - EF SP 4CH (MOD) 63 % - LV EDV SP 2CH (MOD) 70 ml - LV ESV SP 2CH (MOD) 39 ml - EF SP 2CH (MOD) 44 % - LV EDV BP 96 ml - LV ESV BP 43 ml - BP EF (MOD) 55 % - Diastolic/Systolic Function Name Value Normal Range MV E-wave Vmax 0.61 m/sec - MV deceleration time 250 msec - MV A-wave Vmax 0.53 m/sec - MV E:A ratio 1.1 ratio - LV septal e' Vmax 0.08 m/sec - LV lateral e' Vmax 0.09 m/sec - LV E:e' septal ratio 8 ratio - LV E:e' lateral ratio 7.1 ratio - Aortic Valve Name Value Normal Range AV VTI 22.7 cm - AV mean gradient 3 mmHg - LVOT diameter 2.1 cm - LVOT VTI 14.5 cm - LVOT mean gradient 1 mmHg - SV LVOT 50 ml - WADE (continuity VTI) 2.21 cm2 - Ascending Ao 2.6 cm - Tricuspid Valve Name Value Normal Range TR Vmax 2.09 m/sec - TR peak gradient 17 mmHg - Pulmonic Valve/Qp:Qs Name Value Normal Range PV Vmax 0.88 m/sec - PV VTI 15.7 cm - PV peak gradient 3 mmHg - PV mean gradient 1 mmHg - NM end-diastolic Vmax 0.69 m/sec - RVOT Vmax 0.47 m/sec - RVOT VTI 9.63 cm - RVOT peak gradient 1 mmHg - PV acceleration time 130 msec - Smiley/IV: Voiding Method Urinal IV Catheter Type [Left Upper INT / Saline Lock arm] IV Catheter Type [Left Forearm INT / Saline Lock ] Active Medications - Current Medications Current Medications: Generic Name Dose Route Start Last Admin Trade Name Freq PRN Reason Stop Dose Admin Acetaminophen 650 mg 11/13/19 21:45 Tylenol PO Q4H PRN Pain, Mild (1-3) Aspirin 81 mg 11/14/19 13:00 11/19/19 09:36 Halfprin Ec PO 81 mg QDAY ABDI Administration Atorvastatin Calcium 40 mg 11/13/19 22:00 11/18/19 21:01 Lipitor PO 40 mg QHS ABDI Administration Bisacodyl 10 mg 11/13/19 21:45 Dulcolax NM QDAY PRN Constipation Dextrose 0 ml 11/13/19 21:45 D50w (25gm) Syringe IV Q30MIN PRN Hypoglycemia Protocol Enoxaparin Sodium 40 mg 11/14/19 22:00 11/18/19 21:02 Enoxaparin SUB-Q Not Given QDAY@2200 ABDI Magnesium Hydroxide 30 ml 11/13/19 21:45 Milk Of Magnesia PO Q4H PRN Constipation Metoprolol Tartrate 50 mg 11/14/19 13:00 11/19/19 09:36 Metoprolol PO 50 mg QDAY ABDI Administration Ondansetron HCl 4 mg 11/13/19 21:45 Zofran IV Q8H PRN Nausea And Vomiting Oxycodone/Acetaminophen 1 tab 11/14/19 14:14 11/19/19 09:40 Percocet 5/325 PO 1 tab Q8H PRN Administration Pain, Moderate (4-6) Sodium Chloride 10 ml 11/13/19 21:45 Sodium Chloride Flush Syringe 10 Ml IV PRN PRN LINE FLUSH Sodium Chloride 10 ml 11/13/19 22:00 11/19/19 09:37 Sodium Chloride Flush Syringe 10 Ml IV Not Given BID ABDI Nutrition/Malnutrition Assess - Dietary Evaluation Nutrition/Malnutrition Findings: Nutrition Notes Start: 11/14/19 10:05 Freq: Status: Active Protocol: Document 11/19/19 10:00 LP (Rec: 11/19/19 10:11 LP [id number]) Nutrition Notes Initial or Follow up Reassessment Current Diagnosis Coronary Artery Disease, Hypertension,Stroke Other Pertinent Diagnosis HIV Current Diet Cardiac/Consistent CHO Diet + Ensure Labs/Tests Reviewed Pertinent Medications Reviewed Height 5 ft 11 in Weight 97.2 kg [place] Body Weight (kg) 78.18 BMI 29.9 Weight Status Overweight Subjective/Other Information Pt called complaining of food this AM. Only eggs on tray. Brought cereal and fruit. Pt states he will need double portions. Burn Absent Trauma Absent Minimum of two criteria No Reduced Income Tax Manager Strength Measurably Reduced (severe) #1 Nutrition Diagnosis Food and nutrition-related knowledge deficit As Evidenced by Signs and Symptoms Pt had no questions Diagnosis Progress(for reassessment Resolved documentation) Is patient on ventilator? No Is Patient Ambulatory and/or Out of Bed Yes REE-([facility]-ambulatory/OOB) [ [id number] [id number]] Calculation Used for Recommendations [facility][1] Additional Notes Protein needs are 78-97g (0.8- 1g/kg) Fluid needs are 1 ml/kcal Nutrition Intervention Change Diet Order: Cardiac Add Supplement/Snack (indicate name/kcal Change to Ensure Enlive BID /protein ) [place] or vanilla Provides kCal: 700 Provides Protein (gm) 40 Goal #1 Meet at least 75% of energy and protein needs Anticipated Discharge Needs: Cardiac diet with ONS as needed Follow-Up By: 11/24/19 Additional Comments Follow for stable intakes and food preferences
--- NOTE | 2019-11-19 11:48 | Discharge Summary ---
Providers - Providers Date of Admission: 11/13/19 21:26 Date of discharge: 11/19/19 Attending physician: FOSTER RIDLEY 11/13/19 Consult to Physician [CONS] Routine Comment: Consulting Provider: ALLEN KRAMER Physician Instructions: Reason For Exam: CVA 11/13/19 21:46 Consult to Dietitian/Nutrition [CONS] Routine Physician Instructions: Reason For Exam: Reason for Consult: Nutrition Recommendations Reason for Consult: Diet education Occupational Therapy Evaluate and Treat [CONS] Routine Comment: Reason For Exam: Neuro deficits Physical Therapy Evaluation and Treat [CONS] Routine Comment: Reason For Exam: Neuro deficits Primary care physician: INDUSTRIAL ECOLOGIST Hospitalization Condition: Stable Hospital course: --CVA (cerebral vascular accident) Continue aspirin and statin Neuro work-up so far is negative CT of the head and CT of neck-showed no acute finding MRI of the brain-no acute finding. Acute CVA ruled out PT note and recommendation-inpatient rehab recommended Will d/c pt when placement is confirmed --Hypertension-stable Blood pressure appears stable. Monitor blood pressure Resume home med --CAD (coronary artery disease) Continue aspirin and statin --HIV positive Patient CD4 count was 19 about 3 weeks ago. Patient follows up with infectious disease clinic in [place]. Resume medications --Hypokalemia resolved,Continue to monitor electrolytes --Hypomagnesemia Replete magnesium Am lab-monitor mag level --DVT prophylaxis Continue subcutaneous Lovenox. --Full code status PT recommend acute rehab Awaiting acute rehab placement/insurance authorization Versus home with home health Disposition: [id number] HOME UNDER HOME [facility] Time spent for discharge: 35 min Core Measure Documentation - Palliative Care Palliative Care/ Comfort Measures: Not Applicable - Core Measures Any of the following diagnoses?: none Exam - Constitutional Vitals: Temp Pulse Resp BP Pulse Ox 97.4 F L 74 18 103/65 98 11/19/19 09:06 11/19/19 09:36 11/19/19 09:06 11/19/19 09:06 11/19/19 09:24 Plan Activity: advance as tolerated, fall precautions Diet: other (cardiac diet) Special Instructions: physical therapy Additional Instructions: Fall precautions. If you have worsening symptoms contact MD or go to emergency room. Smoking cessation advised, nicotine patch as needed Follow up with: PRIMARY CARE, [Primary Care Provider] - 3-5 Days MAXIMO SHERMAN MD [Staff Physician] - 7 Days Prescriptions: Aspirin [Adult Aspirin] 81 mg PO QDAY #30 AtorvaSTATin [Lipitor] 40 mg PO QHS #30 tablet Metoprolol [Lopressor TAB] 50 mg PO QDAY #30
== END 2019-11-19 13:40 | disposition home health service (06) ==
LOC: ED 19:23 → 4A 21:26
PROVIDERS: ADMIT Internal Medicine Geriatric Medicine; ATTEND Internal Medicine
DX: I63.9 Cerebral infarction, unspecified (principal); R47.81 Slurred speech; I10 Essential (primary) hypertension; I25.10 Atherosclerotic heart disease of native coronary artery without angina pectoris; E87.6 Hypokalemia; E83.42 Hypomagnesemia; E11.9 Type 2 diabetes mellitus without complications; F17.200 Nicotine dependence, unspecified, uncomplicated; R29.710 NIHSS score 10; Z21 Asymptomatic human immunodeficiency virus [HIV] infection status; Z95.1 Presence of aortocoronary bypass graft; Z79.82 Long term (current) use of aspirin; Z79.899 Other long term (current) drug therapy
CPT/HCPCS: 36415; 70450; 70496; 70498; 70551; 80048; 80061; 82962; 83735; 84100; 84484; 85025; 85610; 85670; 85730; 93005; 93306; 93880; 94760; 96365; 96366; 96372; 97110; 97112; 97116; 97161; 97165; 97530; 97535; 99291; A9270; G0378; J1650; J3475; Q9967

== ENCOUNTER 2020-01-28 13:32 | Emergency (ER) | payer MEDICARE ==
[2020-01-28 13:40] VITALS: BP 112/81
--- NOTE | 2020-01-28 13:56 | Emergency Department Report ---
Blank Doc - Documentation Documentation: 54-year-old male that presents with SOB and rash. Stated has a positive COVID test a few days ago. This initial assessment/diagnostic orders/clinical plan/treatment(s) is/are subject to change based on patient's health status, clinical progression and re- assessment by fellow clinical providers in the ED. Further treatment and workup at subsequent clinical providers discretion. Patient/guardians urged not to elope from the ED as their condition may be serious if not clinically assessed and managed. Initial orders include: 1- Patient sent to [facility] for further evaluation and treatment 2- CXR
--- NOTE | 2020-01-28 14:36 | XRay Report ---
CHEST 2 VIEWS INDICATION / CLINICAL INFORMATION: cough. COMPARISON: 12/12/2019 FINDINGS: SUPPORT DEVICES: None. HEART / MEDIASTINUM: No significant abnormality. LUNGS / PLEURA: Mild bibasilar airspace disease No pneumothorax. ADDITIONAL FINDINGS: No significant additional findings. IMPRESSION: Mild bibasilar airspace disease is present. Signer Name: Ayush Monzon MD FACR Signed: 01/28/2020 2:32 PM Workstation Name: [id number]
--- NOTE | 2020-01-28 16:26 | Emergency Department Report ---
ED General Adult HPI - General Chief complaint: Skin Rash Stated complaint: RASH Time Seen by Provider: 01/28/20 13:55 Source: patient Mode of arrival: Ambulatory Limitations: No Limitations - History of Present Illness Initial comments: 54-year-old male presenting with chief complaint of rash, gradual onset over the past couple days. He states that it is very itchy. He states that he recently tested positive for COVID-19 and is on around day 7 of symptoms. Denies any difficulty in breathing or other complaints. He states he is only here to be s een about the rash and has no other concerns today. He has not tried anything at home. Symptoms are mild to moderate no alleviating or exacerbating factors. - Related Data Home Medications Medication Instructions Recorded Confirmed Last Taken Abacavir/Dolutegravir/Lamivudi 1 each PO QDAY 11/13/19 11/14/19 Unknown [Triumeq 600-50-300 mg Tablet] diphenhydrAMINE [Benadryl CAP] 50 mg PO QHS 11/13/19 11/14/19 Unknown Previous Rx's Medication Instructions Recorded Last Taken Type Aspirin [Adult Aspirin] 81 mg PO QDAY #30 11/19/19 Unknown Rx AtorvaSTATin [Lipitor] 40 mg PO QHS #30 tablet 11/19/19 Unknown Rx Metoprolol [Lopressor TAB] 50 mg PO QDAY #30 11/19/19 Unknown Rx Azithromycin [Zithromax] 250 mg PO DAILY #6 tablet 01/28/20 Unknown Rx hydrOXYzine HCL [Atarax] 25 mg PO Q6HR PRN #12 tablet 01/28/20 Unknown Rx predniSONE [Deltasone] 40 mg PO QDAY #10 tab 01/28/20 Unknown Rx Allergies Allergy/AdvReac Type Severity Reaction Status Date / Time metoclopramide [From Reglan] Allergy Unknown Verified 11/13/19 19:25 promethazine [From Phenergan] Allergy Unknown Verified 11/13/19 19:25 ED Review of Systems ROS: Stated complaint: RASH Other details as noted in HPI Comment: All other systems reviewed and negative Skin: as per HPI ED Past Medical Hx - Past Medical History Hx Hypertension: Yes Hx Seizures: Yes (when he was young) Hx HIV: Yes Additional medical history: cerebral palsy, quadrople bypass - Surgical History Additional Surgical History: bypass - Social History Smoking Status: Current Every Day Smoker - Medications Home Medications: Home Medications Medication Instructions Recorded Confirmed Last Taken Type Abacavir/Dolutegravir/Lamivudi 1 each PO QDAY 11/13/19 11/14/19 Unknown History [Triumeq 600-50-300 mg Tablet] diphenhydrAMINE [Benadryl CAP] 50 mg PO QHS 11/13/19 11/14/19 Unknown History Aspirin [Adult Aspirin] 81 mg PO QDAY #30 11/19/19 Unknown Rx AtorvaSTATin [Lipitor] 40 mg PO QHS #30 tablet 11/19/19 Unknown Rx Metoprolol [Lopressor TAB] 50 mg PO QDAY #30 11/19/19 Unknown Rx Azithromycin [Zithromax] 250 mg PO DAILY #6 tablet 01/28/20 Unknown Rx hydrOXYzine HCL [Atarax] 25 mg PO Q6HR PRN #12 tablet 01/28/20 Unknown Rx predniSONE [Deltasone] 40 mg PO QDAY #10 tab 01/28/20 Unknown Rx ED Physical Exam - General Limitations: No Limitations General appearance: alert, in no apparent distress - Head Head exam: Present: atraumatic, normocephalic - Eye Eye exam: Present: normal appearance - ENT ENT exam: Present: mucous membranes moist - Neck Neck exam: Present: normal inspection - Respiratory Respiratory exam: Present: normal lung sounds bilaterally. Absent: respiratory distress, wheezes, rales - Cardiovascular Cardiovascular Exam: Present: regular rate, normal rhythm. Absent: systolic murmur, diastolic murmur, rubs, gallop - GI/Abdominal GI/Abdominal exam: Present: soft, normal bowel sounds - Rectal Rectal exam: Present: deferred - Extremities Exam Extremities exam: Present: normal inspection - Back Exam Back exam: Present: normal inspection - Neurological Exam Neurological exam: Present: alert, oriented X3 - Psychiatric Psychiatric exam: Present: normal affect, normal mood - Skin Skin exam: Present: warm, dry, intact, normal color, rash (Scattered maculopapular excoriated lesions to right upper extremity and back\neck) ED Course Vital Signs 01/28/20 13:39 Temperature 97.5 F L Pulse Rate 95 H Respiratory 18 Rate Blood Pressure 112/81 O2 Sat by Pulse 97 Oximetry ED Medical Decision Making - Radiology Data Radiology results: report reviewed Mild airspace disease - Medical Decision Making Patient here with rash, currently Covid positive. On exam there is diffuse excoriated lesions over the back as well as the right upper extremity, differentials include viral exanthem versus insect bite such as bedbug bites, scabies. Chest x-ray was obtained in triage and does show some mild airspace disease. We will place on Zithromax and give steroids for rash and recommend PCP follow-up after quarantine. Return precautions given. - Differential Diagnosis Viral exanthem, scabies, bedbugs, dermatitis Critical care attestation.: If time is entered above; I have spent that time in minutes in the direct care of this critically ill patient, excluding procedure time. ED Disposition Clinical Impression: COVID-19, Rash and nonspecific skin eruption Disposition: - TO HOME OR SELFCARE Is pt being admited?: No Condition: Stable Instructions: Rash, Adult, COVID-19 Frequently Asked Questions Prescriptions: hydrOXYzine HCL [Atarax] 25 mg PO Q6HR PRN #12 tablet PRN Reason: Itching predniSONE [Deltasone] 40 mg PO QDAY #10 tab Azithromycin [Zithromax] 250 mg PO DAILY #6 tablet Referrals: PRIMARY CARE, [Primary Care Provider] - 3-5 Days Time of Disposition: 16:25
[2020-01-28] MEDS ORDERED: diphenhydrAMINE 25 MG CAP PO ONE (16:27)
== END 2020-01-28 17:14 | disposition home or self-care (01) ==
LOC: ED 13:32
DX: U07.1 COVID-19 (principal); R21 Rash and other nonspecific skin eruption; I10 Essential (primary) hypertension; R56.9 Unspecified convulsions; F17.200 Nicotine dependence, unspecified, uncomplicated; Z21 Asymptomatic human immunodeficiency virus [HIV] infection status; Z98.890 Other specified postprocedural states; Z79.2 Long term (current) use of antibiotics; Z79.899 Other long term (current) drug therapy; Z88.8 Allergy status to other drugs, medicaments and biological substances
CPT/HCPCS: 71046